=== PATIENT | male | born 1965 | race Hispanic/Latino ===

== ENCOUNTER 2017-09-25 11:52 | Inpatient (IN) | payer SELFPAY ==
--- NOTE | 2017-09-25 13:26 | ULT ---
GALLBLADDER ULTRASOUND: INDICATION: Vomiting. FINDINGS: Abnormal increased echogenicity of the hepatic parenchyma is present. There is evidence of cholelith iasis. Gallbladder wall is thickened 5 mm. Small's sign is reported as negative. The common duct measures 7 mm. No ascites evident. IMPRESSION: 1. Cholelithiasis. There is gallbladder wall thickening. Recommend clinical correlation for eviden ce of cholecystitis. 2. Common duct is slightly dilated at 7 mm. Recommend correlation with biliary laboratory values to exclude an obstructive process. POS: [facility]
[2017-09-25] MEDS ORDERED: Ondansetron HCl/PF 4 MG/2 ML Vial ONE ×2 (14:04→15:40)
[2017-09-25] MEDS ORDERED: Piperacillin/Tazobactam 4.5 GM VIAL ONE (15:21)
[2017-09-25] MEDS ORDERED: Glycopyrrolate 0.2 MG/ML 5 ML SYRINGE ONE (15:40)
[2017-09-25] MEDS ORDERED: ePHEDrine/0.9% NaCl/PF SYRINGE 50 mg/10 ml ONE (15:40)
[2017-09-25] MEDS ORDERED: Dexamethasone 20 MG/5 ML VIAL ONE (15:40)
[2017-09-25] MEDS ORDERED: PHENYLEPHRINE-NS 100 MCG/ML 10 ML SYRINGE ONE (15:40)
[2017-09-25] MEDS ORDERED: Ketorolac Tromethamine 30 MG/ML VIAL ONE (15:40)
[2017-09-25] MEDS ORDERED: Lidocaine 1% PF 5 ML VIAL ONE (15:40)
[2017-09-25] MEDS ORDERED: PROPOFOL 200 MG/20 ML VIAL ONE (15:40)
[2017-09-25] MEDS ORDERED: Morphine 4 MG/ML VIAL ONE (19:19)
[2017-09-25] MEDS ORDERED: Bupivacaine/Epinephrine 0.25% 30 ML VIAL ONE (20:52)
--- NOTE | 2017-09-25 22:40 | HP ---
DATE OF ADMISSION: 09/25/2017 REQUESTING PHYSICIAN: Tammi Mac D.O. ATTENDING SURGEON: Casimiro Alonso D.O. HISTORY OF PRESENT ILLNESS: The patient is a 52-year-old man who reports this morning that he was aw akened with a sharp right upper quadrant pain. The patient tried to take some home remedies and read just himself, but was unable to make the pain go away, so he took himself to the Emergency Department at [place] where he underwent evaluation and examination and was noted to have continued right uppe r quadrant pain with an essentially unremarkable CT scan. The patient was then transferred to our fa cility for a right upper quadrant ultrasound which showed findings consistent with acute cholecystiti s at which time we were asked to evaluate the patient for admission and surgical intervention. ALLERGIES: None. CURRENT MEDICATIONS: None. PAST MEDICAL HISTORY: History of diverticulosis. PAST SURGICAL HISTORY: Appendectomy. FAMILY MEDICAL HISTORY: Hypertension. 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 The patient drin ks approximately one beer a day. Also, uses marijuana on a daily basis. Denies smoking. REVIEW OF SYSTEMS: Ten-point review of systems is negative as otherwise stated. PHYSICAL EXAMINATION: VITAL SIGNS: Blood pressure 131/82, heart rate 62, respirations 16, oxygen saturation 99% on room ai r, and temperature is 98.9. GENERAL: The patient is resting comfortably in bed. He is awake, alert, and oriented x3. HEENT: Head is normocephalic. Eyes: Extraocular motion intact. PERRLA bilaterally. Ears are atra umatic without discharge. Oropharynx is clear. NECK: Nontender. Trachea is midline. No JVD. LUNGS: Clear to auscultation with good inspiratory and expiratory effort. HEART: Regular rate and rhythm. ABDOMEN: Soft, flat, nontender with active bowel sounds. The patient had a negative Small sign for me. EXTREMITIES: Neurovascularly intact x4. BACK: Atraumatic and nontender with negative CVA tenderness. SKIN: Shows no signs of jaundice. Sclerae are clear. LABORATORY FINDINGS: White blood cell count 8.6, hemoglobin 16.7, hematocrit 48.4, platelets 244. S odium 141, potassium 4.5, chloride 109, CO2 of 23, BUN 12, creatinine 0.76, glucose 114. LFTs are un remarkable. Lipase is 39. Urinalysis is unremarkable. RADIOGRAPHIC REPORTS: Right upper quadrant ultrasound shows cholelithiasis with gallbladder wall thi ckening. Common bile duct is slightly dilated at 7 mm. ASSESSMENT: Acute cholecystitis. PLAN: Plan will be to admit the patient to the surgical floor. He will remain n.p.o. and will under go laparoscopic cholecystectomy this evening with anticipated discharge tomorrow morning as long as h is LFTs remain normal and he is tolerating a diet. The evaluation and examination were done with Dr. Alonso in the emergency department.
[2017-09-25] MEDS ORDERED: CEFAZOLIN/Water 2 GM/20 ML SYRINGE ONE ×2 (22:46→23:21)
[2017-09-25] MEDS ORDERED: CEFAZOLIN 1 GM VIAL ONE (22:46)
[2017-09-25] MEDS ORDERED: Fentanyl 100 MCG/2 ML VIAL ONE (23:00)
[2017-09-26] MEDS ORDERED: Ondansetron HCl/PF 4 MG/2 ML Vial IVP PRN ×3 (00:52→01:34)
[2017-09-26] MEDS ORDERED: Promethazine HCl 25 MG/ML VIAL IM PRN ×3 (00:52→01:34)
[2017-09-26] MEDS ORDERED: Ketorolac Tromethamine 30 MG/ML VIAL IVP PRN (00:52)
[2017-09-26] MEDS ORDERED: Dextrose 50% Abboject 50 ML SYRINGE SLOW IVP PRN ×2 (00:52→01:34)
[2017-09-26] MEDS ORDERED: hydrALAZINE 20 MG/ML VIAL SLOW IVP PRN ×2 (00:52→01:34)
[2017-09-26] MEDS ORDERED: Dextrose 5% in Water 1,000 ML IV PRN ×2 (00:52→01:34)
[2017-09-26] MEDS ORDERED: Calcium Carbonate 500 MG ChewTAB PO PRN ×2 (00:52→01:34)
[2017-09-26] MEDS ORDERED: Mag-Al 1200 mg/1200 mg/30 ML UDCUP PO PRN ×2 (00:52→01:34)
[2017-09-26] MEDS ORDERED: Promethazine HCl 25 MG/ML VIAL SLOW IVP PRN (00:54)
[2017-09-26] MEDS ORDERED: traMADol HCl 50 MG TAB PO PRN ×4 (00:55→01:34)
[2017-09-26] MEDS ORDERED: Fentanyl 100 MCG/2 ML VIAL ONE ×2 (00:58→01:11)
[2017-09-26] MEDS ORDERED: Famotidine/PF 20 mg/2ml Vial SLOW IVP SCH ×2 (01:34→09:00)
[2017-09-26] MEDS ORDERED: Lactated Ringer's 1,000 ML IV SCH (01:34)
[2017-09-26] MEDS ORDERED: Famotidine 20 MG TAB PO SCH ×2 (01:34→09:00)
[2017-09-26] MEDS: Lactated Ringer's 1,000 ML IV SCH ×3 (01:35→16:14)
[2017-09-26 02:04] VITALS: BMI 34.7
[2017-09-26] MEDS: Acetaminophen 500 MG TAB PO SCH ×3 (02:14→16:13)
[2017-09-26] MEDS: Ketorolac Tromethamine 30 MG/ML VIAL IVP SCH ×3 (02:14→16:13)
[2017-09-26] MEDS: Piperacillin/Tazobactam 3.375 GM in Sodium Chloride 0.9% 100 ML IVPB SCH ×3 (03:21→16:13)
[2017-09-26] MEDS ORDERED: Acetaminophen 325 MG TAB PO SCH (05:00)
[2017-09-26 06:06] LABS: ALT (SGPT) 39 U/L (8-55); AST (SGOT) 35 U/L (5-34); Albumin 3.9 g/dL (3.5-5.0); Alkaline Phosphatase 69 U/L (40-150); Anion Gap 11 mmol/L (10-20); BUN (Urea Nitrogen) 10 mg/dL (8.4-25.7); Bilirubin, Direct 0.2 mg/dL (0.1-0.3); Bilirubin, Total 0.5 mg/dL (0.2-1.2); Calc. Creatinine Clearance 172 mL/min (70-130); Calcium 8.7 mg/dL (7.8-10.44); Carbon Dioxide 25 mmol/L (22-29); Chloride 106 mmol/L (98-107); Estimated GFR-MDRD Greater than 90; Globulin 2.9 g/dL (2.4-3.5); Glucose 151 mg/dL (70-105); Potassium 4.2 mmol/L (3.5-5.1); Protein, Total 6.8 g/dL (6.0-8.3); Sodium 138 mmol/L (136-145)
--- NOTE | 2017-09-26 06:22 | OP ---
DATE OF PROCEDURE: 09/26/2017 PREOPERATIVE DIAGNOSIS: Acute cholecystitis with cholelithiasis. POSTOPERATIVE DIAGNOSIS: Acute cholecystitis with cholelithiasis. OPERATION PERFORMED: Laparoscopic cholecystectomy. SURGEON: Casimiro Alonso D.O. ANESTHESIA: General endotracheal. ESTIMATED BLOOD LOSS: 10 mL. FLUIDS GIVEN: 1000 mL crystalloids. SPONGE AND INSTRUMENT COUNT: Certified as correct x2. COMPLICATIONS: None apparent at the time of operation. INDICATIONS FOR OPERATION: A 52-year-old man who presented to the emergency department with right up per quadrant abdominal pain. Clinical and radiographic examination was consistent with acute cholecystitis with cholelithiasis for which patient was brought to the operating room for laparoscopic cholecystectomy. Findings are consistent with gallbladder in the usual anatomic location completely encased by omental adhesions. DESCRIPTION OF OPERATION: Informed consent obtained from the patient who was brought to the operatin g room and placed in supine position. Following general anesthesia, the abdomen is sterilely prepped and draped in usual fashion. The skin below the umbilicus was infiltrated with 0.25% Marcaine with epinephrine. A small curvilinear infraumbilical incision is made using 11 scalpel. Umbilical stalk grasped with Homer's and elevated. Veress needle inserted through the incision and placed in the pe ritoneal cavity through which the abdomen was insufflated with 3.5 liters of CO2 gas. Intraabdominal pressure noted at 3 mmHg. Following abdominal insufflation, Veress needle was removed and a 5 mm tr ocar introduced using the Visiport under laparoscopy. Laparoscopy confirmed proper placement of the port, no injuries to underlying structures. Additional laparoscopy reveals gallbladder in the usual anatomic location completely encased by omental adhesions. Under direct laparoscopy, a 12 mm epigast mark and two 5 mm right lateral subcostal ports were placed after the overlying skin was infiltrated w ith 0.25% Marcaine with epinephrine and appropriate incisions made. The patient is then placed in a reverse Trendelenburg position, rotated to his left. I introduced the [place] dissector with cauter y, using this to take down omental adhesions to expose the fundus of the gallbladder. Prestige grasp er introduced through the right lateral subcostal port grasping the fundus of the gallbladder which w as elevated cephalad. Omental adhesions were then taken down from the remainder of the gallbladder. A second Prestige grasper introduced through the right medial subcostal port grasping the Megan's pouch which was retracted laterally. The cystic duct was dissected free from the surrounding struct ures at the triangle of Calot. This was then divided between clips, applying two clips proximally an d one clip at the junction of the cystic duct and gallbladder. Cystic artery was dissected free from surrounding structures and divided between clips in a similar fashion. Gallbladder was removed from the liver bed using cautery with good hemostasis. It was then delivered of the abdominal cavity usi ng an EndoCatch. Finding no other pathology, laparoscopy was terminated. Operative site inspected f or good hemostasis. Fascia of the epigastric port closed using 0 Vicryl suture and Endo closure deric ce under laparoscopy. Abdomen was then desufflated. All ports and instruments removed and accounted for. Skin incisions were then closed using 4-0 Monocryl suture in subcuticular fashion. Dermabond was applied over the incisions. The patient tolerated the operation without any apparent complicatio n and was returned to recovery room in satisfactory condition.
[2017-09-26] MEDS ORDERED: Enoxaparin Sodium 40 MG/0.4 ML SYRINGE SC SCH ×2 (09:00)
[2017-09-26 15:41] VITALS: BP 119/79; TEMP 98.2
== END 2017-09-26 17:30 | disposition home or self-care (01) | DRG 419 ==
LOC: ERS 11:52 → SDC 16:35 → SURG B 16:35 → OBSVTOIN 09-26 00:52
PROVIDERS: ADMIT Surgery; ATTEND Surgery
PROC: 0FT44ZZ Resection of Gallbladder, Percutaneous Endoscopic Approach (ICD-10-PCS; principal; 2017-09-26)
DX: K80.00 Calculus of gallbladder with acute cholecystitis without obstruction (principal)
CPT/HCPCS: 36415; 76705; 80053; 80076; 88304; 96361; 96365; 96375; J0690; J1100; J1885; J2001; J2270; J2405; J2543; J2704; J3010; J7050

== ENCOUNTER 2017-10-01 23:27 | Emergency (ER) | payer SELFPAY ==
[2017-10-02] MEDS ORDERED: Fentanyl 100 MCG/2 ML VIAL ONE ×2 (01:25→03:43)
[2017-10-02] MEDS ORDERED: Ketorolac Tromethamine 30 MG/ML VIAL ONE (01:25)
[2017-10-02 01:39] LABS: ALT (SGPT) 35 U/L (8-55); AST (SGOT) 17 U/L (5-34); Albumin 4.4 g/dL (3.5-5.0); Alkaline Phosphatase 77 U/L (40-150); Anion Gap 14 mmol/L (10-20); BUN (Urea Nitrogen) 17 mg/dL (8.4-25.7); Bilirubin, Total 0.5 mg/dL (0.2-1.2); Calc. Creatinine Clearance 0 mL/min (70-130); Calcium 9.8 mg/dL (7.8-10.44); Carbon Dioxide 20 mmol/L (22-29); Chloride 108 mmol/L (98-107); Estimated GFR-MDRD Greater than 90; Globulin 3.7 g/dL (2.4-3.5); Glucose 113 mg/dL (70-105); Lipase 16 U/L (8-78); Magnesium 2.5 mg/dL (1.6-2.6); Potassium 4.2 mmol/L (3.5-5.1); Protein, Total 8.1 g/dL (6.0-8.3); Sodium 138 mmol/L (136-145)
[2017-10-02 01:42] LABS: CKMB 0.5 ng/mL (0-6.6); Troponin I Less than 0.010 ng/mL (< 0.028)
[2017-10-02 03:56] LABS: #Basophils 0.1 thou/uL (0.0-0.2); #Eosinphils 0.1 thou/uL (0.0-0.7); #Lymphocytes 1.9 thou/uL (1.20-3.40); #Monocytes 0.9 thou/uL (0.11-0.59); #Neutrophils 6.3 thou/uL (1.40-6.50); %Basophils 0.6 % (0.0-1.0); %Eosinophils 1.3 % (0.0-10.0); %Lymphocytes 20.6 % (21.0-51.0); %Monocytes 10.1 % (0.0-10.0); %Neutrophils 67.4 % (42.0-75.0); Hemoglobin 18.1 g/dL (14.0-18.0); Mean Corpuscular HGB CONC 33.1 g/dL (32.0-36.0); Mean Corpuscular Hemoglobin 29.7 pg (27.0-31.0); Mean Corpuscular Volume 89.5 fL (78.0-98.0); Mean Platelet Volume 7.9 fL (7.4-10.4); Platelet Count 279 thou/uL (130-400); RBC Distribution Width 12.9 % (11.5-14.5); White Blood Cell (WBC) Count 9.3 thou/uL (4.8-10.8)
[2017-10-02 04:02] LABS: Bilirubin Negative (Negative); Blood, Urine Negative (Negative); Clarity CLEAR (Clear); Glucose, Urine (Dipstick) Negative (Negative); Leukocyte Negative (Negative); Nitrite Negative (Negative); Protein, Urine (Dipstick) Negative (Neg-Trace); pH, Urine 5.5 (5.0-9.0)
[2017-10-02 04:05] LABS: Specific Gravity, Urine Greater than 1.060 (1.002-1.036)
--- NOTE | 2017-10-02 09:51 | CT ---
PRELIMINARY REPORT/[facility]/EMERGENTY AFTER-HOURS PROCEDURE CT Abdomen and Pelvis With Intravenous Contrast CLINICAL HISTORY: 52 years old, male; Abdominal pain; Prior surgery; date: 3-7 days post-operative; placido about a week ago - was released home on same day. Vomiting and constant pain worsening since yesterday. TECHNIQUE: Axial computed tomography images of the abdomen and pelvis with intravenous contrast. Coronal reformatted images were created and reviewed. COMPARISON: No relevant prior studies available. FINDINGS: Lung bases: Unremarkable. No mass. No consolidation. ABDOMEN: Liver: Mild liver fatty infiltration. Gallbladder and bile ducts: Status post cholecystectomy. Trace residual fluid within the gallbladder fossa. No ductal dilation. Pancreas: Unremarkable. No mass. No ductal dilation. Spleen: Unremarkable. No splenomegaly. Adrenals: 13 mm low-density adenoma of the superior left adrenal gland. Normal right adrenal gland. Kidneys and ureters: No hydronephrosis. Small nonobstructing calcified stone upper pole left kidney c oronal image 103. Stomach and bowel: No generalized ileus or obstruction. Mural thickening of the mid sigmoid colon wit h associated scattered diverticula and infiltration / stranding of the pericolonic fat consistent wit h mild acute diverticulitis. No lauryn abscess or perforation. PELVIS: Appendix: Prior appendectomy. Bladder: Unremarkable. No mass. Reproductive: Unremarkable as visualized. ABDOMEN and PELVIS: Intraperitoneal space: Unremarkable. No free air. No significant fluid collection. Bones/joints: No acute fracture. No dislocation. Soft tissues: Small fat-containing umbilical hernia. Vasculature: Unremarkable. No abdominal aortic aneurysm. Lymph nodes: Unremarkable. No enlarged lymph nodes. IMPRESSION: 1. No generalized ileus or obstruction. 2. Mild acute diverticulitis of the mid sigmoid colon. No associated abscess or perforation. 3. Status post cholecystectomy. Trace residual fluid within the gallbladder fossa. 4. No hydronephrosis. Small nonobstructing calcified stone upper pole left kidney coronal image 103. Thank you for allowing us to participate in the care of your patient. Dictated and Authenticated by: Gordon Sanchez MD 10/02/2017 2:46 AM Central Time ([place] & [place]) FINAL REPORT EMERGENT AFTER HOURS CT ABDOMEN AND PELVIS WITH IV CONTRAST: DATE: 10/02/17. HISTORY: Abdominal pain. Recent cholecystectomy 1 week ago. Vomiting and constant pain which has gotten wors e. COMPARISON: 09/25/17. IMPRESSION: 1. Diverticulits involving the sigmoid colon. No fluid collection is seen to suggest an abscess, and there is no free intraperitoneal gas to suggest perforation. 2. Post cholecystectomy changes. Minimal stranding and trace amount of fluid is seen related to the recent postsurgical changes. There is a focus of subcutaneous gas and mild stranding in the subcuta neous adipose layer right upper quadrant also likely related to recent postsurgical change. 2. Stable nonobstructing left renal calculi. 4. Stable left adrenal adenoma. 5. Findings are in agreement with the preliminary report by [facility]. POS: [facility]
--- NOTE | 2017-10-02 10:16 | RAD ---
PORTABLE AP CHEST XRAY: DATE: 10/02/17. HISTORY: Intense chest pain worse today. COMPARISON: 09/11/11. FINDINGS: Cardiac silhouette and pulmonary vasculature are within normal limits for the portable technique and depth of inspiration. There is mild bibasilar atelectasis with mild elevation of the right hemidiaph ragm. Lungs are otherwise clear. Degenerative changes are noted in the spine. IMPRESSION: 1. No acute cardiopulmonary process. 2. Bibasilar atelectasis. POS: [facility]
[2017-10-02] MEDS ORDERED: ISOVUE-370 76%-LOCM 1 ML ONE (11:46)
== END 2017-10-02 04:30 | disposition home or self-care (01) ==
LOC: ERS 23:27
DX: G89.18 Other acute postprocedural pain (principal); K57.92 Diverticulitis of intestine, part unspecified, without perforation or abscess without bleeding
CPT/HCPCS: 36415; 71045; 74177; 80053; 81003; 82553; 83690; 83735; 84484; 85025; 96361; 96374; 96375; 96376; J1885; J3010

== ENCOUNTER 2017-10-24 16:37 | Inpatient (IN) | payer OTHER, SELFPAY ==
[~2017-10-24 16:37] MED LIST: ISOVUE-370 76%-LOCM 1 ML ONE
[2017-10-24] MEDS ORDERED: Piperacillin/Tazobactam 4.5 GM VIAL ONE (17:22)
[2017-10-24 17:31] LABS: #Basophils 0.1 thou/uL (0.0-0.2); #Eosinphils 0.2 thou/uL (0.0-0.7); #Lymphocytes 2.1 thou/uL (1.20-3.40); #Monocytes 0.8 thou/uL (0.11-0.59); #Neutrophils 6.7 thou/uL (1.40-6.50); %Basophils 0.5 % (0.0-1.0); %Lymphocytes 21.1 % (21.0-51.0); %Monocytes 8.3 % (0.0-10.0); %Neutrophils 68.1 % (42.0-75.0); Hemoglobin 16.4 g/dL (14.0-18.0); Mean Corpuscular HGB CONC 33.7 g/dL (32.0-36.0); Mean Corpuscular Hemoglobin 30.1 pg (27.0-31.0); Mean Corpuscular Volume 89.1 fL (78.0-98.0); Mean Platelet Volume 7.7 fL (7.4-10.4); Platelet Count 244 thou/uL (130-400); RBC Distribution Width 12.8 % (11.5-14.5); Red Blood Cell (RBC) Count 5.46 mill/uL (4.70-6.10); White Blood Cell (WBC) Count 9.8 thou/uL (4.8-10.8)
[2017-10-24 17:41] LABS: Bilirubin Negative (Negative); Blood, Urine Negative (Negative); Clarity CLEAR (Clear); Glucose, Urine (Dipstick) Negative (Negative); Leukocyte Negative (Negative); Nitrite Negative (Negative); Protein, Urine (Dipstick) Negative (Neg-Trace); Specific Gravity, Urine 1.024 (1.002-1.036); Urobilinogen 0.2 mg/dL (0.2-1.0)
[2017-10-24 17:50] LABS: ALT (SGPT) 24 U/L (8-55); AST (SGOT) 18 U/L (5-34); Albumin 4.1 g/dL (3.5-5.0); Alkaline Phosphatase 73 U/L (40-150); Anion Gap 12 mmol/L (10-20); BUN (Urea Nitrogen) 12 mg/dL (8.4-25.7); Bilirubin, Total 0.5 mg/dL (0.2-1.2); Calc. Creatinine Clearance 0 mL/min (70-130); Carbon Dioxide 21 mmol/L (22-29); Chloride 109 mmol/L (98-107); Estimated GFR-MDRD Greater than 90; Globulin 3.3 g/dL (2.4-3.5); Glucose 88 mg/dL (70-105); Lipase 19 U/L (8-78); Magnesium 2.6 mg/dL (1.6-2.6); Potassium 3.9 mmol/L (3.5-5.1); Protein, Total 7.4 g/dL (6.0-8.3); Sodium 138 mmol/L (136-145)
[2017-10-24] MEDS ORDERED: Ketorolac Tromethamine 30 MG/ML VIAL ONE (18:25)
--- NOTE | 2017-10-24 19:24 | CT ---
CT ABDOMEN AND PELVIS WITH CONTRAST: HISTORY: Diverticulitis. COMPARISON: CT abdomen and pelvis from 10/02/2017. FINDINGS: Mild atelectatic changes in the lung bases. No pericardial effusion. The sigmoid diverticulitis is similar to slightly improving. No walled off collection is appreciated. No definite abscess. 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 Left-sided renal calculi are present, measuring up to 3 mm. No obstructive uropathy. Aortoiliac con tour is nonaneurysmal. Prior cholecystectomy. Diffuse hepatic steatosis. Small splenules. The pancreas is unremarkable. IMPRESSION: Resolving sigmoid diverticulitis without acute complication. POS: [facility]
[2017-10-24] MEDS ORDERED: Acetaminophen 325 MG TAB PO PRN (20:41)
[2017-10-24] MEDS ORDERED: HYDROcodone/Acetaminophen 5/325 mg Tablet PO PRN (20:41)
[2017-10-24] MEDS ORDERED: Ondansetron ODT 4 MG TAB SL PRN (20:41)
[2017-10-24] MEDS: Sodium Chloride 0.45% 1,000 ML IV SCH (21:35)
[2017-10-24] MEDS: HYDROcodone/Acetaminophen 5/325 mg Tablet PO PRN (22:21)
[2017-10-24 22:54] VITALS: BMI 34.2
[2017-10-24] MEDS: Acetaminophen 500 MG TAB PO SCH (23:51)
[2017-10-24] MEDS: Piperacillin/Tazobactam 3.375 GM in Sodium Chloride 0.9% 100 ML IVPB SCH (23:51)
--- NOTE | 2017-10-25 03:31 | HP ---
TIME OF EVALUATION: 7:55 p.m. PRIMARY CARE PHYSICIAN: No PCP. CODE STATUS: FULL CODE. CHIEF COMPLAINT: Abdominal pain. HISTORY OF PRESENT ILLNESS: A 52-year-old male patient with past medical history of diverticulosis, morbid obesity, gallstones, came to the hospital after having severe pain in the left lower abdomen, the patient reported that he had the pain for about 3 weeks ago. Over the past 3 days, it has been g etting severely worse. He had been on antibiotics p.o. Also, patient's bile and gallstone improving , however, the pain has gotten worse. Symptoms are severe, triggered by diverticular infection. No alleviating factors other than pain medication, has had constipation, no blood in the stool. REVIEW OF SYSTEMS: Constitutional: No fever or chills. Generalized weakness. Respiratory: No cou gh, sputum production, or shortness of breath. Cardiovascular: No chest pain, palpitations, or shor tness of breath. Gastrointestinal: The patient has nausea and vomiting, no diarrhea, abdominal pain , and constipation. Central Nervous System: No dizziness, headache, or feeling lightheaded. Genito urinary: No burning on urination. Extremities: No leg swelling. All other systems were reviewed a nd negative except for the findings mentioned above. PAST MEDICAL HISTORY: Mentioned in the HPI. SOCIAL HISTORY: Patient drinks socially every week, use drugs, marijuana. No smoking history. PAST MEDICAL AND SURGICAL HISTORY: History of cholecystectomy in April of this year, appendectomy . PSYCHIATRIC HISTORY: No previous psychiatric history. FAMILY HISTORY: Father with heart problems. Mother with heart problems, hypertension, and diabetes. KNOWN ALLERGIES: No known drug allergies. REPORTED MEDICATIONS: Zyrtec, MiraLax. PHYSICAL EXAMINATION: VITAL SIGNS: Blood pressure 129/82 with heart rate of 87, respiratory rate was 20, temperature 97.5, pain was 10/10, saturation 96% on room air. GENERAL APPEARANCE: Patient is alert, in distress due to pain and oriented. HEENT: Eyes: Normal conjunctivae. Moist oral mucosa. Anicteric. NECK: No JVD. RESPIRATORY: Bilateral air entry. No rales, no wheezing. Symmetric expansion. CARDIOVASCULAR: Normal rate, regular rhythm. No murmurs, no gallop. EXTREMITIES: No edema. ABDOMEN: The patient has severe tenderness in the left lower quadrant, normal bowel sounds. MUSCULOSKELETAL: Baseline range of motion and strength. No tenderness. Capillary refill seems to b e intact. SKIN: Warm and intact. No pallor, no rash, no redness. Peripheral pulses are present. NEUROLOGIC: Baseline sensorium. No evidence of any focal weakness. Baseline speech. Cranial nerve seems to be intact. PSYCHIATRIC: The patient is in a good mood. No anxiety. Oriented. Optimal judgment. IMAGING: Abdominal pelvis CT was reviewed. The patient has resolving sigmoid diverticulitis without acute complications. LABORATORY DATA: Labs were done. Patient has white count 9.8, hemoglobin 16.4, MCV 89, platelet cou nt 244,000. Sodium 138, potassium 3.9, chloride 109, carbon dioxide was 21, anion gap 12, BUN 12, cr eatinine 0.7. LFTs were normal. Magnesium was normal. Lipase was normal and UA was normal. ASSESSMENT AND PLAN: The patient will be placed in the hospital for the following medical problem: 1. Possible remaining acute diverticulitis, place the patient on antibiotics. We will follow judy elaine. We will monitor. We will treat pain. 2. Severe intractable pain in the left lower quadrant, patient receiving medications for edema control, . We will adjust treatment as needed. 3. Deep venous thrombosis prophylaxis.
[2017-10-25] MEDS: HYDROcodone/Acetaminophen 5/325 mg Tablet PO PRN ×4 (04:40→23:46)
[2017-10-25 05:23] LABS: #Eosinphils 0.2 thou/uL (0.0-0.7); #Lymphocytes 0.9 thou/uL (1.20-3.40); #Monocytes 0.9 thou/uL (0.11-0.59); #Neutrophils 6.7 thou/uL (1.40-6.50); %Basophils 0.3 % (0.0-1.0); %Eosinophils 2.6 % (0.0-10.0); %Lymphocytes 10.1 % (21.0-51.0); %Monocytes 9.7 % (0.0-10.0); %Neutrophils 77.2 % (42.0-75.0); Hemoglobin 15.5 g/dL (14.0-18.0); Mean Corpuscular HGB CONC 34.2 g/dL (32.0-36.0); Mean Corpuscular Hemoglobin 30.6 pg (27.0-31.0); Mean Corpuscular Volume 89.5 fL (78.0-98.0); Mean Platelet Volume 7.3 fL (7.4-10.4); Platelet Count 226 thou/uL (130-400); RBC Distribution Width 12.7 % (11.5-14.5); Red Blood Cell (RBC) Count 5.08 mill/uL (4.70-6.10); White Blood Cell (WBC) Count 8.7 thou/uL (4.8-10.8)
[2017-10-25 05:40] LABS: Anion Gap 11 mmol/L (10-20); BUN (Urea Nitrogen) 13 mg/dL (8.4-25.7); Calc. Creatinine Clearance 203 mL/min (70-130); Calcium 8.2 mg/dL (7.8-10.44); Carbon Dioxide 20 mmol/L (22-29); Chloride 110 mmol/L (98-107); Estimated GFR-MDRD Greater than 90; Glucose 109 mg/dL (70-105); Potassium 4.2 mmol/L (3.5-5.1); Sodium 137 mmol/L (136-145)
[2017-10-25] MEDS: Acetaminophen 500 MG TAB PO SCH ×4 (05:42→23:45)
[2017-10-25] MEDS: Piperacillin/Tazobactam 3.375 GM in Sodium Chloride 0.9% 100 ML IVPB SCH ×4 (05:42→23:45)
[2017-10-25] MEDS: Ondansetron HCl/PF 4 MG/2 ML Vial IVP PRN ×2 (05:48→12:19)
[2017-10-25] MEDS: Sodium Chloride 0.45% 1,000 ML IV SCH ×3 (05:57→21:33)
[2017-10-25] MEDS: Enoxaparin Sodium 40 MG/0.4 ML SYRINGE SC SCH (08:13)
[2017-10-25] MEDS ORDERED: Ketorolac Tromethamine 30 MG/ML VIAL IVP SCH (18:00)
--- NOTE | 2017-10-25 19:01 | RAD ---
ABDOMEN ONE VIEW: 10/25/17 HISTORY: Severe abdominal pain. Evaluate for free air. COMPARISON: CT prior day. FINDINGS: Evaluation for free air is limited without an upright view. Supine radiographs are inadequate for lorraine e intraperitoneal air. No dilated air filled loops of large or small bowel. No evidence for obstruction. Right upper quadran t surgical clips. Lumbosacral transitional vertebra with large left L5 transverse process an anomalo us articulation with the sacrum. IMPRESSION: Evaluation is limited without an upright exam. No evidence for bowel obstruction. POS: [facility]
[2017-10-25] MEDS ORDERED: Morphine 4 MG/ML VIAL SLOW IVP SCH (21:00)
[2017-10-26] MEDS: Sodium Chloride 0.45% 1,000 ML IV SCH (04:22)
[2017-10-26] MEDS: Acetaminophen 500 MG TAB PO SCH ×4 (05:37→23:37)
[2017-10-26] MEDS: Piperacillin/Tazobactam 3.375 GM in Sodium Chloride 0.9% 100 ML IVPB SCH ×4 (05:38→23:37)
[2017-10-26] MEDS: Ondansetron HCl/PF 4 MG/2 ML Vial IVP PRN (05:44)
[2017-10-26] MEDS: HYDROcodone/Acetaminophen 5/325 mg Tablet PO PRN (06:30)
[2017-10-26] MEDS: Enoxaparin Sodium 40 MG/0.4 ML SYRINGE SC SCH (09:12)
[2017-10-26] MEDS: Morphine 4 MG/ML VIAL SLOW IVP PRN ×2 (14:52→19:08)
--- NOTE | 2017-10-26 15:01 | PDOC.PN ---
- Subjective Encounter Start Date: 10/25/17 Encounter Start Time: 09:00 patient is seen today, alert and oriented. Persistanbt Abdominal pain left lower quadrant,. 9/10 intesity. - Objective Resuscitation Status: Resuscitation Status FULL:Full Resuscitation MAR Reviewed: Yes Vital Signs & Weight: Vital Signs (12 hours) Temp Pulse Resp BP Pulse Ox 10/26/17 11:37 98.4 F 79 20 117/79 96 10/26/17 08:00 98 F 58 L 18 10/26/17 07:31 98 F 58 L 18 98/60 97 10/26/17 04:23 97.8 F 55 L 20 102/65 98 Weight Weight 239 lb I&O: 10/25/17 10/26/17 10/27/17 06:59 06:59 06:59 Intake Total 1480 4195 Balance 1480 4195 Result Diagrams: 10/25/17 04:37 10/25/17 04:37 Radiology Reviewed by me: Yes Phys Exam - Physical Examination HEENT: PERRLA, moist MMs Neck: no nodes, no JVD Respiratory: no wheezing, no rales Cardiovascular: RRR, no significant murmur Gastrointestinal: soft, non-tender Musculoskeletal: no edema, pulses present Dx/Plan (1) Diverticulitis large intestine Code(s): K57.32 - DVTRCLI OF LG INT W/O PERFORATION OR ABSCESS W/O BLEEDING Status: Acute Comment: Continue IV abx, Will do Xray Abd now. Will continue with IV Fluids, will consult surgery any signs of perforation. (2) Moderate dehydration Code(s): E86.0 - DEHYDRATION Status: Acute Comment: IV fluids, good urine output. - Plan cont current plan of care, plan discussed w/ family, continue antibiotics, PT/OT , web content & social media manager, incentive spirometry, DVT proph w/lovenox * . Review of Systems - Review of Systems Eyes: negative: Pain, Vision Change, Conjunctivae Inflammation, Eyelid Inflammation, Redness, Other ENT: negative: Ear Pain, Ear Discharge, Nose Pain, Nose Discharge, Nose Congestion, Mouth Pain, Mouth Swelling, Throat Pain, Throat Swelling, Other Respiratory: negative: Cough, Dry, Shortness of Breath, Hemoptysis, SOB with Excertion, Pleuritic Pain, Sputum, Wheezing Cardiovascular: negative: chest pain, palpitations, orthopnea, paroxysmal nocturnal dyspnea, edema, light headedness, other Gastrointestinal: Abdominal Pain, Constipation. negative: Nausea, Vomiting, Melena, Hematochezia, Other - Medications/Allergies Allergies/Adverse Reactions: Allergies Allergy/AdvReac Type Severity Reaction Status Date / Time No Known Allergies Allergy Verified 10/24/17 22:50 Medications: Current Medications Acetaminophen (Tylenol) 1,000 mg PO 0500,1100,1700,2300 [facility] Last Admin: 10/26/17 11:57 Dose: 1,000 mg Enoxaparin Sodium (Lovenox) 40 mg SC 0900 [facility] Last Admin: 10/26/17 09:12 Dose: 40 mg Piperacillin Sod/Tazobactam (Sod 3.375 gm/ Sodium Chloride) 100 mls @ 200 mls/ hr IVPB Q6HR [facility] Stop: 10/29/17 08:00 Last Admin: 10/26/17 11:57 Dose: 100 mls Morphine Sulfate (Morphine) 4 mg SLOW IVP Q4H PRN PRN Reason: . Last Admin: 10/26/17 14:52 Dose: 4 mg
--- NOTE | 2017-10-26 15:08 | PDOC.PN ---
- Subjective Encounter Start Date: 10/26/17 Encounter Start Time: 15:00 Patient is seen today, alert and oriented. Persistasnt pain, passing gas, No perforation on Xray. more comfortable today, Still not tolerating diet. - Objective Resuscitation Status: Resuscitation Status FULL:Full Resuscitation MAR Reviewed: Yes Vital Signs & Weight: Vital Signs (12 hours) Temp Pulse Resp BP Pulse Ox 10/26/17 11:37 98.4 F 79 20 117/79 96 10/26/17 08:00 98 F 58 L 18 10/26/17 07:31 98 F 58 L 18 98/60 97 10/26/17 04:23 97.8 F 55 L 20 102/65 98 Weight Weight 239 lb I&O: 10/25/17 10/26/17 10/27/17 06:59 06:59 06:59 Intake Total 1480 4195 Balance 1480 4195 Result Diagrams: 10/25/17 04:37 10/25/17 04:37 Radiology Reviewed by me: Yes Phys Exam - Physical Examination HEENT: PERRLA, moist MMs Neck: no nodes, no JVD Respiratory: no wheezing, no rales Cardiovascular: RRR, no significant murmur Tenderness of left lower quadrant. Musculoskeletal: no edema Dx/Plan (1) Diverticulitis large intestine Code(s): K57.32 - DVTRCLI OF LG INT W/O PERFORATION OR ABSCESS W/O BLEEDING Status: Acute Comment: Continue IV abx, Pt is On Zosyn, Normal WBC, will repeat CT abdomen tomorrow if worseingh pain and no improveemnt. Plan repeat cbc and lactic acid. (2) Moderate dehydration Code(s): E86.0 - DEHYDRATION Status: Acute Comment: IV fluids, good urine output. - Plan cont current plan of care, plan discussed w/ family, continue antibiotics, PT/OT , social services manager, incentive spirometry, DVT proph w/lovenox * . Review of Systems - Review of Systems Eyes: negative: Pain, Vision Change, Conjunctivae Inflammation, Eyelid Inflammation, Redness, Other ENT: negative: Ear Pain, Ear Discharge, Nose Pain, Nose Discharge, Nose Congestion, Mouth Pain, Mouth Swelling, Throat Pain, Throat Swelling, Other Respiratory: negative: Cough, Dry, Shortness of Breath, Hemoptysis, SOB with Excertion, Pleuritic Pain, Sputum, Wheezing Cardiovascular: negative: chest pain, palpitations, orthopnea, paroxysmal nocturnal dyspnea, edema, light headedness, other Gastrointestinal: Abdominal Pain, Constipation Genitourinary: negative: Dysuria, Frequency, Incontinence, Hematuria, Retention , Other Musculoskeletal: negative: Neck Pain, Shoulder Pain, Arm Pain, Back Pain, Hand Pain, Leg Pain, Foot Pain, Other Skin: negative: Rash, Lesions, Tristin, Bruising, Other - Medications/Allergies Allergies/Adverse Reactions: Allergies Allergy/AdvReac Type Severity Reaction Status Date / Time No Known Allergies Allergy Verified 10/24/17 22:50 Medications: Current Medications Acetaminophen (Tylenol) 1,000 mg PO 0500,1100,1700,2300 [facility] Last Admin: 10/26/17 11:57 Dose: 1,000 mg Enoxaparin Sodium (Lovenox) 40 mg SC 0900 [facility] Last Admin: 10/26/17 09:12 Dose: 40 mg Piperacillin Sod/Tazobactam (Sod 3.375 gm/ Sodium Chloride) 100 mls @ 200 mls/ hr IVPB Q6HR [facility] Stop: 10/29/17 08:00 Last Admin: 10/26/17 11:57 Dose: 100 mls Morphine Sulfate (Morphine) 4 mg SLOW IVP Q4H PRN PRN Reason: . Last Admin: 10/26/17 14:52 Dose: 4 mg
[2017-10-26] MEDS ORDERED: Ondansetron ODT 4 MG TAB SL PRN (19:52)
[2017-10-26] MEDS ORDERED: Ondansetron HCl/PF 4 MG/2 ML Vial IVP PRN (19:52)
[2017-10-26] MEDS ORDERED: Sodium Chloride 0.45% 1,000 ML IV SCH (20:00)
[2017-10-26] MEDS ORDERED: Sodium Chloride 0.9% 1,000 ML IV SCH (20:00)
[2017-10-26] MEDS: Sodium Chloride 0.9% 1,000 ML IV SCH (22:42)
[2017-10-27] MEDS: Morphine 4 MG/ML VIAL SLOW IVP PRN ×3 (03:32→21:56)
[2017-10-27] MEDS: Sodium Chloride 0.9% 1,000 ML IV SCH ×3 (03:32→20:46)
[2017-10-27 05:27] LABS: #Eosinphils 0.2 thou/uL (0.0-0.7); #Lymphocytes 1.3 thou/uL (1.20-3.40); #Monocytes 0.7 thou/uL (0.11-0.59); %Basophils 0.4 % (0.0-1.0); %Eosinophils 3.1 % (0.0-10.0); %Lymphocytes 18.1 % (21.0-51.0); %Monocytes 9.9 % (0.0-10.0); %Neutrophils 68.6 % (42.0-75.0); Hemoglobin 15.4 g/dL (14.0-18.0); Mean Corpuscular Hemoglobin 29.7 pg (27.0-31.0); Mean Platelet Volume 7.5 fL (7.4-10.4); Platelet Count 219 thou/uL (130-400); RBC Distribution Width 12.7 % (11.5-14.5); Red Blood Cell (RBC) Count 5.18 mill/uL (4.70-6.10); White Blood Cell (WBC) Count 7.3 thou/uL (4.8-10.8)
[2017-10-27 05:34] LABS: Anion Gap 12 mmol/L (10-20); BUN (Urea Nitrogen) 10 mg/dL (8.4-25.7); Calc. Creatinine Clearance 174 mL/min (70-130); Calcium 8.6 mg/dL (7.8-10.44); Carbon Dioxide 22 mmol/L (22-29); Chloride 107 mmol/L (98-107); Estimated GFR-MDRD Greater than 90; Glucose 90 mg/dL (70-105); Potassium 4.4 mmol/L (3.5-5.1); Sodium 137 mmol/L (136-145)
[2017-10-27] MEDS: Piperacillin/Tazobactam 3.375 GM in Sodium Chloride 0.9% 100 ML IVPB SCH ×4 (05:49→23:38)
[2017-10-27] MEDS: Acetaminophen 500 MG TAB PO SCH ×4 (05:51→23:39)
[2017-10-27] MEDS: Enoxaparin Sodium 40 MG/0.4 ML SYRINGE SC SCH (09:44)
--- NOTE | 2017-10-27 16:13 | PDOC.PN ---
- Subjective Encounter Start Date: 10/27/17 Encounter Start Time: 16:11 Mr. Garsia was seen today in follow-up of acute diverticulitis. He says the pain has improved, but it is still present. He has had a bowel movement. He is frustrated however that this is the 5th episode in the past 2 years. He wants to know " what is going on". He is un-insured and does not have a Primary Care Provider. He is afraid he may have cancer. - Objective Resuscitation Status: Resuscitation Status FULL:Full Resuscitation MAR Reviewed: Yes Vital Signs & Weight: Vital Signs (12 hours) Temp Pulse Resp BP Pulse Ox 10/27/17 12:00 98.3 F 73 16 128/84 96 10/27/17 07:34 98.1 F 63 16 10/27/17 07:30 97.8 F 69 12 136/89 97 Weight Weight 239 lb I&O: 10/26/17 10/27/17 10/28/17 06:59 06:59 06:59 Intake Total 4195 4205 Balance 4195 4205 Result Diagrams: 10/27/17 04:35 10/27/17 04:35 Phys Exam - Physical Examination HEENT: PERRLA Respiratory: no wheezing, no rales, no rhonchi, clear to auscultation bilateral Cardiovascular: RRR, no significant murmur, no rub Gastrointestinal: soft, no distention, positive bowel sounds + mid abdominal, and Left lower quandrant tenderness , no rebound/guarding Musculoskeletal: no edema Dx/Plan (1) Diverticulitis large intestine Code(s): K57.32 - DVTRCLI OF LG INT W/O PERFORATION OR ABSCESS W/O BLEEDING Status: Acute Comment: Continue IV abx, Pt is On Zosyn, Normal WBC, will repeat CT abdomen tomorrow if worseingh pain and no improveemnt. Plan repeat cbc and lactic acid. - Plan * Diverticulitis- recurrent- This was discussed in detail. He does not have any worrisome features. He is clinically improving. But due to the recurrent nature of the illness, and this possibility of a colonic colon fistula- will consult GI * Continue IV Zosyn.
--- NOTE | 2017-10-28 04:54 | CON ---
DATE OF CONSULTATION: 10/27/2017 REASON FOR CONSULTATION: Diverticulitis. HISTORY OF PRESENT ILLNESS: Mr. Garsia is a pleasant 52-year-old gentleman who was admitted for diver ticulitis. He came to the emergency room on the , three days ago with left lower quadrant abdomi nal pain, which is very similar to his previous bouts, which have been diagnosed as diverticulitis. This would, however, was much worse. Typically states he goes to the hospital in [facility] and now he has had a couple of CAT scans and then he will get some antibiotics to get get better, but within a few months will have to come back yesterday. He has had diverticulitis x6 times in the past 2 years, probably 3 times this year. At this time because the pain was worse, he decided to com e to the emergency room here at [facility] in [place] instead of [place]. He had a CAT scan that owed diverticulitis. 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 There w as no signs of overt infection due to the amount of pain the patient was having. Decision was made t o go ahead and admitted him to the hospital. His white count was only 9.8. His hemoglobin is 16. H is platelet count was 248. Patient's abdominal CAT scans in 06/2015 showed fatty liver, diverticulosis. In 02/2016, he had sigm oid diverticulitis on the CAT scan. In 09/2015, he had sigmoid diverticulitis. In 08/2017, he was d iagnosed with sigmoid diverticulitis by CAT scan. On 09/25/2017, he felt to have diverticulosis with out diverticulitis. There was an area of segmental thickening and the suggestion of a colonic-coloni c fistula on that study. The patient was sent here to this hospital and there was some concern raise d whether or not may be the patient had some right upper quadrant pain. He had an ultrasound that owed gallbladder wall thickening, cholelithiasis, and decision at that time was made to take his gall bladder out, which was done by Dr. Alonso. Patient did represent to the hospital on 10/02/2017 with n ausea, vomiting. He had mild sigmoid diverticulitis then. Reviewing the pathology, his gallbladder pathology on 09/26/2017 showed chronic cholecystitis and cho lelithiasis. The surgical note at that time on 09/26/2017, reported the gallbladder was encased by o mental adhesions and seemed to show signs of acute cholecystitis. Presently, the patient feels much better when he came to the hospital. PAST MEDICAL HISTORY: 1. Recurrent bouts of left lower quadrant pain and fever, diagnosis of diverticulitis by CAT scan, t reated empirically typically in [place]. 2. Recent episode of cholecystectomy for a thickened gallbladder wall, gallstones, and right upper q uadrant pain. 3. Prior history of substance abuse, heavy drug use. Recent marijuana. He denies IV drug use. SOCIAL HISTORY: He does drink alcohol, does not smoke, regular tobacco. ALLERGIES: None known. CURRENT MEDICATIONS AT HOME: None except for MiraLax, which he will take p.r.n. and vvmz-cml-qnuuoip Zyrtec. FAMILY HISTORY: Heart problems. There were some cancers in the mother's side of family. He thinks of blood cancers. There was no history of colon cancer, Crohn's, or colitis. ALLERGIES: None known. REVIEW OF SYSTEMS: He has lost about 10 or 15 pounds with this illness since the gallbladder was rem bruce in this procedure. PHYSICAL EXAMINATION: GENERAL: Patient is resting comfortably in bed. VITAL SIGNS: Temperature is 98.1. He has been afebrile since admission, pulse 61, blood pressure 11 7/71. LUNGS: Clear. HEART: Regular rate and rhythm. ABDOMEN: Soft. There is mild tenderness with some voluntary guarding in the left lower quadrant sup rapubic region. There is no rebound. There is no distention. There is no tympany. Epigastric was negative. EXTREMITIES: No clubbing, cyanosis, or edema. LABORATORY AND X-RAY FINDINGS: White count 7.3 today, hemoglobin 15.4, platelet count 219 today. ASSESSMENT: Recurrent diverticulitis with possible colo-fistula still was significantly tender on IV antibiotics. RECOMMENDATIONS: Surgical consultation, secondary complicated diverticulitis. I think this patient also is going to need a sigmoid resection. It would be ideal if he can get him calmed down with IV a ntibiotics and have an outpatient colonoscopy, but I am not sure it seems he has ever stayed healthy without acute inflammation long enough. 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 Presently, he is not a good candidate for a colonoscopy in light of the active acute inflammation. He will be at increased risk for perforation. We will as k General Surgery to evaluate him tomorrow. We will continue IV antibiotics. He can have a clear li quid diet.
[2017-10-28] MEDS: Piperacillin/Tazobactam 3.375 GM in Sodium Chloride 0.9% 100 ML IVPB SCH ×2 (05:48→11:07)
[2017-10-28] MEDS: Acetaminophen 500 MG TAB PO SCH ×3 (05:49→18:02)
[2017-10-28] MEDS: Enoxaparin Sodium 40 MG/0.4 ML SYRINGE SC SCH (08:59)
[2017-10-28] MEDS: Sodium Chloride 0.9% 1,000 ML IV SCH ×2 (09:00→11:07)
--- NOTE | 2017-10-28 15:06 | CON ---
DATE OF CONSULTATION: 10/28/2017 CHIEF COMPLAINT: Diverticulitis, recurrent. HISTORY OF PRESENT ILLNESS: This is a 52-year-old male who presents with multiple episodes of divert iculitis. I have been consulted for potential surgical management. He has had multiple bouts of thi s and has had multiple courses of antibiotics. He has almost daily pain. His symptoms have improved at this hospitalization. I have been consulted for whether this represents a surgical need. Patien t's pain is now down to 3/10 only when he pushes. He is tolerating regular food, although he does no t like the hospital food, has not been eating much. Denies nausea, vomiting, diarrhea. PAST MEDICAL HISTORY: Recurrent diverticulitis, cholecystitis, history of previous substance abuse. SOCIAL HISTORY: No smoking, alcohol or other drugs currently. MEDICINES: See list. ALLERGIES: No known drug allergies. REVIEW OF SYSTEMS: He has lost 10-15 pounds in the last several months with this diverticulitis. Te n system review of systems is otherwise negative as described above. PHYSICAL EXAMINATION: VITAL SIGNS: Blood pressure 119/82, pulse 69, respirations 16. He is afebrile. HEENT: Sclerae are anicteric. Oropharynx is clear. NECK: No lymphadenopathy. CHEST: Clear. HEART: Regular rate and rhythm. ABDOMEN: Soft. He is mildly tender in left lower quadrant without guarding or rebound. No abdomina l hernias. EXTREMITIES: No ischemia or edema to extremities. LABORATORY DATA AND IMAGING DATA: White blood cell count is 7 yesterday, hemoglobin 15, creatinine w as 0.[address] scan is reviewed. There is some question of enterocolic fistula. ASSESSMENT: Diverticulitis, chronic. PLAN: Recommend transition to outpatient antibiotics. See me back in the office in a few weeks. If his symptoms do persist, we could plan for elective colonoscopy followed by colectomy. We did discu ss potential risks and benefits of surgery. Certainly, if he has chronic pain, chronic episodes it w ould be indicated; however, there is significant risks associated with that surgery including infecti on, wound infection, ventral hernia, anastomotic leak, need for permanent colostomy. We will follow up with him as an outpatient.
--- NOTE | 2017-10-28 18:03 | PDOC.EVN ---
Event Note - Event Note Event Note: Patient was out of the room when I went by to see him. I waited for an hour, and he has not returned. Vital signs are normal, and no problems have been reported by the nursing staff. Will see him tomorrow, and plan is for discharge tomorrow
--- NOTE | 2017-10-28 18:19 | PDOC.PN ---
- Subjective Encounter Start Date: 10/28/17 Encounter Start Time: 18:17 Mr. Garsia was seen today in follow-up. He says the pain has improved. He is tolerating a solid diet. - Objective Resuscitation Status: Resuscitation Status FULL:Full Resuscitation MAR Reviewed: Yes Vital Signs & Weight: Vital Signs (12 hours) Temp Pulse Resp BP Pulse Ox 10/28/17 15:00 98.3 F 60 20 123/73 99 10/28/17 10:55 98.2 F 69 16 119/82 97 10/28/17 08:20 98.3 F 60 20 99 10/28/17 07:10 97.6 F 62 20 124/80 99 Weight Weight 239 lb I&O: 10/27/17 10/28/17 10/29/17 06:59 06:59 06:59 Intake Total 4205 3475 Balance 4205 3475 Result Diagrams: 10/27/17 04:35 10/27/17 04:35 Phys Exam - Physical Examination HEENT: PERRLA Respiratory: no wheezing, no rales, no rhonchi, clear to auscultation bilateral Cardiovascular: RRR, no significant murmur, no rub Gastrointestinal: soft + mild left lower quadrant tenderness Dx/Plan (1) Diverticulitis large intestine Code(s): K57.32 - DVTRCLI OF LG INT W/O PERFORATION OR ABSCESS W/O BLEEDING Status: Acute Comment: Continue IV abx, Pt is On Zosyn, Normal WBC, will repeat CT abdomen tomorrow if worseingh pain and no improveemnt. Plan repeat cbc and lactic acid. - Plan * Diverticulitis- General Surgery recommendations noted * He is stable for discharge home.
[2017-10-28 19:36] VITALS: BP 119/89; TEMP 97.9
[2017-10-28] MEDS ORDERED: Amoxicillin/Potassium Clav 875 MG TAB PO SCH (21:00)
--- NOTE | 2017-10-29 02:15 | DIS ---
DATE OF ADMISSION: 10/24/2017 DATE OF DISCHARGE: 10/28/2017 PRIMARY CARE PHYSICIAN: The patient does not have a primary care physician. DISCHARGE DISPOSITION: Home. PRIMARY DISCHARGE DIAGNOSES: 1. Diverticulitis. 2. Allergic rhinitis. DISCHARGE MEDICATIONS Include Augmentin 875 mg twice a day, MiraLax 17 grams daily, Zyrtec 10 mg a d ay. PROCEDURES DONE DURING ADMISSION: The patient had a CT scan of the abdomen and pelvis in which there was evidence of resolving sigmoid diverticulitis without acute complication. There was no obstructi ve uropathy. There was a left-sided renal calculus present. No abscess and there was possibly a col o-colonic fistula in the lower pelvis. CODE STATUS: FULL CODE. ALLERGIES: No known drug allergies. HOSPITAL COURSE: Mr. Garsia is a pleasant 52-year-old gentleman who presented to the emergency room w ith severe left lower abdominal pain and cramping. CT evidence demonstrated acute diverticulitis. Tyra dunn was admitted and started on IV antibiotics. He improved over the course of the next few days. He was concerned; however, this is the fifth episode he has had over the last 2 years and for this reaso n, Gastroenterology was consulted. It was felt best that the patient continue the treatment and have a complete resolution of the inflammatory process prior to having any surgical or endoscopic procedu res done. The information was given to the patient for followup and he was subsequently discharged h ome in stable condition to have close followup with GI as well as Surgery in the outpatient setting.
== END 2017-10-28 19:38 | disposition home or self-care (01) | DRG 392 ==
LOC: ERS 16:37 → SURG B 20:26
PROVIDERS: ADMIT Internal Medicine Infectious Disease; ATTEND Internal Medicine Infectious Disease
DX: K57.32 Diverticulitis of large intestine without perforation or abscess without bleeding (principal); E86.0 Dehydration; E66.01 Morbid (severe) obesity due to excess calories; J30.9 Allergic rhinitis, unspecified; Z68.34 Body mass index [BMI] 34.0-34.9, adult
CPT/HCPCS: 36415; 74018; 74177; 80048; 80053; 81003; 83605; 83690; 83735; 85025; 96365; 96375; 96376; J1650; J1885; J2270; J2405; J2543; J7050

== ENCOUNTER 2017-11-29 18:49 | Inpatient (IN) | payer OTHER, SELFPAY ==
[2017-11-29] MEDS ORDERED: Ondansetron HCl/PF 4 MG/2 ML Vial ONE (19:55)
[2017-11-29 20:03] LABS: #Eosinphils 0.2 thou/uL (0.0-0.7); #Lymphocytes 1.7 thou/uL (1.20-3.40); #Monocytes 0.7 thou/uL (0.11-0.59); #Neutrophils 4.3 thou/uL (1.40-6.50); %Basophils 0.7 % (0.0-1.0); %Eosinophils 2.9 % (0.0-10.0); %Lymphocytes 24.4 % (21.0-51.0); %Monocytes 10.1 % (0.0-10.0); Hemoglobin 16.2 g/dL (14.0-18.0); Mean Corpuscular HGB CONC 33.7 g/dL (32.0-36.0); Mean Corpuscular Hemoglobin 30.2 pg (27.0-31.0); Mean Corpuscular Volume 89.7 fL (78.0-98.0); Mean Platelet Volume 7.7 fL (7.4-10.4); Platelet Count 263 thou/uL (130-400); RBC Distribution Width 12.2 % (11.5-14.5); Red Blood Cell (RBC) Count 5.35 mill/uL (4.70-6.10); White Blood Cell (WBC) Count 6.9 thou/uL (4.8-10.8)
[2017-11-29 20:10] LABS: PTT 27.6 SEC (22.9-36.1); Prothrombin Time 13.7 SEC (12.0-14.7)
[2017-11-29 20:12] LABS: Bilirubin Negative (Negative); Blood, Urine Negative (Negative); Clarity CLEAR (Clear); Glucose, Urine (Dipstick) Negative (Negative); Leukocyte Small (Negative); Nitrite Negative (Negative); Protein, Urine (Dipstick) Negative (Neg-Trace); Specific Gravity, Urine 1.022 (1.002-1.036); Urobilinogen 0.2 mg/dL (0.2-1.0)
[2017-11-29 20:14] LABS: Bacteria/HPF None Seen HPF (None Seen); Hyaline Casts/LPF 0-3 HYALINE CAST LPF (0-3 Hyaline); Pathc Cast-AUWi Flag 0.29 (0-2.49); RBC/HPF 0-3 HPF (0-3); Squamous Epithelial None Seen HPF (0-3); WBC/HPF 0-3 HPF (0-3)
[2017-11-29 20:25] LABS: ALT (SGPT) 38 U/L (8-55); AST (SGOT) 27 U/L (5-34); Alkaline Phosphatase 70 U/L (40-150); Anion Gap 12 mmol/L (10-20); BUN (Urea Nitrogen) 11 mg/dL (8.4-25.7); Bilirubin, Total 0.4 mg/dL (0.2-1.2); Calc. Creatinine Clearance 0 mL/min (70-130); Calcium 8.9 mg/dL (7.8-10.44); Carbon Dioxide 23 mmol/L (22-29); Chloride 107 mmol/L (98-107); Estimated GFR-MDRD Greater than 90; Globulin 3.1 g/dL (2.4-3.5); Glucose 92 mg/dL (70-105); Lipase 17 U/L (8-78); Potassium 3.7 mmol/L (3.5-5.1); Protein, Total 7.1 g/dL (6.0-8.3); Sodium 138 mmol/L (136-145)
--- NOTE | 2017-11-29 20:37 | CT ---
ABDOMEN CT WITH CONTRAST PELVIC CT WITH CONTRAST 11/29/17 COMPARISON: 10/24/17, 10/02/17, 09/25/17. TECHNIQUE: Abdomen and pelvic CT are performed with IV contrast. Enteric contrast is not administered. Coronal r eformatted images are submitted for interpretation. FINDINGS: ABDOMEN CT: Lung bases are clear. Heart size is normal. No pericardial effusion. The descending thoracic aorta an d abdominal aorta have a normal caliber. No periaortic fat stranding. Gallbladder is surgically absent. Portal vein is patent. There is evidence of hepatic steatosis. No enhancing masses in the liver. The spleen, pancreas, and r ight adrenal gland have appropriate enhancement. There is an indeterminate lesion in the left adrenal gland measuring 1.3 x 1.1 cm with attenuation coefficient of 47 Hounsfield units. Symmetric enhancement of the kidneys. Bilaterally, no obstructive uropathy. No gastrohepatic, retrocrural or periportal lymphadenopathy. Nonspecific, nonenlarged mesenteric lymph nodes. No mesenteric mass, lymphadenopathy or free air. No free fluid. Ileocecal junction is unremarkable. Appendix is surgically absent. There is mucosal thick ening involving the distal descending colon, proximal to mid sigmoid colon. the distal sigmoid colon is decompressed as is the rectum. There is evidence of diverticulosis. Inflammatory change due to div erticulitis is noted. No evidence of abscess. No definite bowel perforation. PELVIC CT: No mass, lymphadenopathy, or free air. Small amount of free fluid in the pelvis is noted. IMPRESSION: 1. Redemonstration of inflammatory change involving the left hemicolon compatible with a diverti culitis. No evidence of abscess or perforation. Mucosal prominence is presumed to be due to inflammat ory change. Underlying neoplastic process cannot be excluded. 2. Redemonstration of an indeterminate left adrenal nodule. POS: PPP
[2017-11-29] MEDS ORDERED: Piperacillin/Tazobactam 4.5 GM VIAL ONE (20:57)
[2017-11-29] MEDS ORDERED: Ondansetron HCl/PF 4 MG/2 ML Vial IVP PRN (21:56)
[2017-11-29] MEDS ORDERED: Acetaminophen 325 MG TAB PO PRN (21:56)
[2017-11-30] VITALS: BMI 33.2
[2017-11-30] MEDS: Piperacillin/Tazobactam 3.375 GM in Sodium Chloride 0.9% 100 ML IVPB SCH ×4 (02:41→20:38)
[2017-11-30 05:54] LABS: #Eosinphils 0.1 thou/uL (0.0-0.7); #Lymphocytes 1.8 thou/uL (1.20-3.40); #Monocytes 0.6 thou/uL (0.11-0.59); #Neutrophils 3.9 thou/uL (1.40-6.50); %Basophils 0.6 % (0.0-1.0); %Eosinophils 2.2 % (0.0-10.0); %Lymphocytes 27.3 % (21.0-51.0); %Monocytes 9.6 % (0.0-10.0); %Neutrophils 60.3 % (42.0-75.0); Hemoglobin 15.2 g/dL (14.0-18.0); Mean Corpuscular HGB CONC 33.7 g/dL (32.0-36.0); Mean Corpuscular Hemoglobin 30.5 pg (27.0-31.0); Mean Corpuscular Volume 90.3 fL (78.0-98.0); Mean Platelet Volume 7.8 fL (7.4-10.4); Platelet Count 237 thou/uL (130-400); RBC Distribution Width 12.2 % (11.5-14.5); Red Blood Cell (RBC) Count 4.97 mill/uL (4.70-6.10); White Blood Cell (WBC) Count 6.5 thou/uL (4.8-10.8)
[2017-11-30 06:12] LABS: Anion Gap 12 mmol/L (10-20); BUN (Urea Nitrogen) 10 mg/dL (8.4-25.7); Calc. Creatinine Clearance 152 mL/min (70-130); Calcium 8.6 mg/dL (7.8-10.44); Carbon Dioxide 22 mmol/L (22-29); Chloride 109 mmol/L (98-107); Estimated GFR-MDRD Greater than 90; Glucose 103 mg/dL (70-105); Potassium 3.7 mmol/L (3.5-5.1); Sodium 139 mmol/L (136-145)
--- NOTE | 2017-11-30 09:54 | HP ---
TIME OF EVALUATION 9:15 p.m. PRIMARY CARE PHYSICIAN: [facility]. CODE STATUS: FULL CODE. CHIEF COMPLAINT: Abdominal pain. HISTORY OF PRESENT ILLNESS: This is a 52-year-old male patient with past medical history of divertic ulitis, gallstone, came to the hospital after having abdominal pain, that was moderate, likely trigge red by underlying nonhealing diverticulitis. The patient reported that the pain is in the left lower quadrant, associated with nausea and generalized weakness. He was in the hospital in the past month , on antibiotics of ciprofloxacin. Dr. Fall and Dr. Yi have seen him in the past week, they w ere trying to get a colonoscopy done; however, GI was not inclined to do it. Dr. Fall has seen th e patient and it seems that final decision is to take him for surgery to do hemicolectomy. REVIEW OF SYSTEMS: Constitutional: No fever, no chills, generalized weakness. Respiratory: No cou gh, sputum production, or shortness of breath. Cardiovascular: No chest pain or palpitation. Gastr ointestinal: No nausea, vomiting, abdominal pain, no diarrhea. Central Nervous Systems: No dizzine ss, headache, feeling lightheaded. Genitourinary: No burning on urination. Extremities: No leg sw elling. All other systems were reviewed and negative except for the findings mentioned above. PAST MEDICAL HISTORY: Positive for diverticulitis, gallstones. PAST SURGICAL HISTORY: Cholecystectomy, appendectomy. PSYCHIATRIC HISTORY: No previous psychiatric history. SOCIAL HISTORY: The patient drinks socially every week. The patient currently uses drugs, abuse mar ijuana. No smoking history. KNOWN ALLERGIES: No known drug allergies. REPORTED MEDICATIONS: Metronidazole and ciprofloxacin. PHYSICAL EXAMINATION: VITAL SIGNS: On presentation, blood pressure 114/76, heart rate 82, respiratory rate was 19, tempera ture 97.8. GENERAL APPEARANCE: The patient is alert, oriented, obese, not in acute distress. HEENT: Eyes: Normal conjunctivae. Moist oral mucosa. Anicteric. NECK: No JVD. RESPIRATORY: Bilateral air entry. No rales, no wheezing. Symmetric expansion. CARDIOVASCULAR: Normal rate, regular rhythm. No murmurs, no gallop. EXTREMITIES: No edema. ABDOMEN: Soft, normal bowel sounds. MUSCULOSKELETAL: Baseline range of motion and strength. No tenderness. Peripheral pulses are prese nt. Capillary refill seems to be intact. SKIN: Warm and intact. No pallor, no rash, no redness. NEUROLOGIC: Baseline sensorium. No evidence of any new focal weakness. Baseline speech. Cranial n erves seem to be intact. PSYCHIATRIC: He is in good mood. No anxiety. Oriented, optimal judgment. RADIOLOGY: Abdomen and pelvis CT showed diverticulitis, descending colon with inflammatory changes. LABORATORY DATA: Reviewed. White count 6.9, hemoglobin 16.2, MCV 89, platelet count 263,000. PT 13 .7, INR 1.0, PTT 27.6. Sodium 138, potassium 3.7, chloride 107, carbon dioxide 23, anion gap 12, BUN 11, creatinine 0.8, GFR greater than 90. Glucose 92, calcium 8.9, total bilirubin 0.4, AST 27, ALT 38, alkaline phosphatase 70, serum total protein 7.1, albumin 4.0, globulin 3.1, albumin and globulin ratio 1.3. Lipase 17. Urine was negative. ASSESSMENT AND PLAN: The patient will be placed in the hospital with following medical problems: 1. Sigmoid diverticulitis, patient has had recurrent problems with it, not improving. Next step wou ld be for Dr. Fall to take him to OR and do hemicolectomy, for resolution patient is going to be a dmitted, seems to be stable at this point. 2. Morbidly obese. Advised to lose weight. 3. Deep venous thrombosis prophylaxis. 4. Left adrenal nodule. This was seen again in the CAT scan, unclear etiology, may need further wor kup. 5. Deep venous thrombosis prophylaxis, pain management. 6. Continue empiric antibiotics.
--- NOTE | 2017-11-30 15:08 | PDOC.PN ---
- Subjective Encounter Start Date: 11/30/17 Encounter Start Time: 15:06 Mr. Garsia was seen today in follow-up of Diverticulitis. He continues to have some diffuse abdominal pain, and some nausea, otherwise ok. - Objective Resuscitation Status: Resuscitation Status FULL:Full Resuscitation MAR Reviewed: Yes Vital Signs & Weight: Vital Signs (12 hours) Temp Pulse Resp BP Pulse Ox 11/30/17 07:52 97.5 F L 68 20 106/70 95 Weight Weight 224 lb 13.944 oz I&O: 11/29/17 11/30/17 12/01/17 06:59 06:59 06:59 Intake Total 600 Balance 600 Result Diagrams: 11/30/17 05:21 11/30/17 05:21 Phys Exam - Physical Examination HEENT: PERRLA Respiratory: no wheezing, no rales, no rhonchi, clear to auscultation bilateral Cardiovascular: RRR, no significant murmur, no rub no gallop Gastrointestinal: soft, positive bowel sounds + diffuse abdominal tenderness , no rebound or guarding Musculoskeletal: no edema Dx/Plan (1) Diverticulitis large intestine Code(s): K57.32 - DVTRCLI OF LG INT W/O PERFORATION OR ABSCESS W/O BLEEDING Status: Acute Comment: Continue IV abx, Pt is On Zosyn, Normal WBC, will repeat CT abdomen tomorrow if worseingh pain and no improveemnt. Plan repeat cbc and lactic acid. - Plan * Diverticulitis- Continue empiric antibiotics ( Zosyn) * This is recurrent, and General Surgery was consulted and the plan is for surgery tomorrow.
[2017-11-30] MEDS ORDERED: GoLYTELY 4,000 ml Bottle PO SCH (18:00)
--- NOTE | 2017-11-30 18:43 | CON ---
DATE OF CONSULTATION: 11/30/2017 HISTORY OF PRESENT ILLNESS: Mr. Garsia is readmitted for ongoing diverticulitis. He was not tolerati ng the outpatient antibiotics. Had nausea, vomiting and continued pain. He feels better now. PHYSICAL EXAMINATION: VITAL SIGNS: He is afebrile, pulse 68, respirations 18, blood pressure 117/80. ABDOMEN: Soft. He is tender in the left abdomen with localized guarding. For past medical and surgical history, see my past progress note. ASSESSMENT: Acute on chronic diverticulitis, unable to resolve as an outpatient. PLAN: Sigmoid colectomy plus or minus colostomy tomorrow. We will attempt to prep today with GoLYTE LY. Risks, benefits and alternatives discussed. He gives consent. We will do that tomorrow.
[2017-12-01] MEDS: Piperacillin/Tazobactam 3.375 GM in Sodium Chloride 0.9% 100 ML IVPB SCH ×3 (03:22→16:35)
[2017-12-01] MEDS ORDERED: Midazolam HCl 2 mg/2 ml Vial ONE ×2 (08:03→10:04)
[2017-12-01] MEDS ORDERED: Fentanyl 100 MCG/2 ML VIAL ONE ×2 (08:04→10:04)
[2017-12-01] MEDS ORDERED: Dexamethasone 4 mg/ml Vial ONE (09:29)
[2017-12-01] MEDS ORDERED: Fentanyl 250 MCG/5 ML VIAL ONE ×2 (10:15→11:22)
[2017-12-01] MEDS ORDERED: Bupivacaine/Epinephrine 0.25% 30 ML VIAL ONE (10:21)
[2017-12-01] MEDS ORDERED: Ondansetron HCl/PF 4 MG/2 ML Vial IVP PRN ×4 (10:27→13:17)
[2017-12-01] MEDS ORDERED: Promethazine HCl 25 MG/ML VIAL IM PRN ×3 (11:59→15:43)
[2017-12-01] MEDS ORDERED: Meperidine HCl/PF 25 MG/ML VIAL SLOW IVP PRN (11:59)
[2017-12-01] MEDS ORDERED: HYDROmorphone 2 MG/ML VIAL SLOW IVP PRN (11:59)
[2017-12-01] MEDS ORDERED: Bupivacaine HCl 0.5%/Epinephrine 1:200,000/PF 30 ml Vial ONE (12:46)
[2017-12-01] MEDS ORDERED: diphenhydrAMINE 25 MG CAP PO PRN (13:17)
[2017-12-01] MEDS ORDERED: diphenhydrAMINE 50 MG/ML VIAL IVP PRN (13:17)
[2017-12-01] MEDS ORDERED: Naloxone HCl 0.4 mg/ml Vial IV PRN (13:17)
[2017-12-01] MEDS ORDERED: diphenhydrAMINE 50 MG/ML VIAL IM PRN (13:17)
[2017-12-01] MEDS ORDERED: Zolpidem Tartrate 5 MG TAB PO PRN (13:17)
[2017-12-01] MEDS ORDERED: PHENYLEPHRINE-NS 100 MCG/ML 10 ML SYRINGE ONE (13:22)
[2017-12-01] MEDS ORDERED: PROPOFOL 200 MG/20 ML VIAL ONE (13:22)
[2017-12-01] MEDS ORDERED: Dexamethasone 20 MG/5 ML VIAL ONE (13:22)
[2017-12-01] MEDS ORDERED: Glycopyrrolate 0.2 MG/ML 5 ML SYRINGE ONE (13:22)
[2017-12-01] MEDS ORDERED: Ondansetron HCl/PF 4 MG/2 ML Vial ONE (13:22)
[2017-12-01] MEDS ORDERED: ePHEDrine/0.9% NaCl/PF SYRINGE 50 mg/10 ml ONE (13:22)
[2017-12-01] MEDS ORDERED: Lidocaine 1% PF 5 ML VIAL ONE (13:22)
[2017-12-01] MEDS ORDERED: Communication Order-Pharmacy FS SCH (13:30)
[2017-12-01] MEDS ORDERED: HYDROmorphone 2 MG/ML VIAL ONE (13:30)
[2017-12-01] MEDS ORDERED: Promethazine HCl 25 MG/ML VIAL ONE (13:46)
[2017-12-01] MEDS ORDERED: hydrALAZINE 20 MG/ML VIAL SLOW IVP PRN (15:43)
[2017-12-01] MEDS ORDERED: Piperacillin/Tazobactam 3.375 GM in Sodium Chloride 0.9% 100 ML IVPB SCH (16:15)
[2017-12-01] MEDS ORDERED: Meperidine HCl/PF 25 MG/ML VIAL SLOW IVP SCH (17:00)
--- NOTE | 2017-12-01 17:23 | PDOC.PN ---
- Subjective Encounter Start Date: 12/01/17 Encounter Start Time: 17:21 Mr. Garsia was seen today in follow-up of diverticulitis. He has returned from surgery, and is having quite a bit of pain in is abdomen. He denies shortness of breath, or chest discomfort. - Objective Resuscitation Status: Resuscitation Status FULL:Full Resuscitation MAR Reviewed: Yes Vital Signs & Weight: Vital Signs (12 hours) Temp Pulse Resp BP Pulse Ox 12/01/17 07:41 97.5 F L 75 18 106/72 96 Weight Weight 224 lb 13.944 oz I&O: 11/30/17 12/01/17 12/02/17 06:59 06:59 06:59 Intake Total 600 Balance 600 Result Diagrams: 11/30/17 05:21 11/30/17 05:21 Additional Labs: Accuchecks 12/01/17 13:19 POC Glucose 140 H Phys Exam - Physical Examination HEENT: PERRLA Respiratory: no wheezing, no rales, no rhonchi, clear to auscultation bilateral Cardiovascular: RRR, no significant murmur, no rub Gastrointestinal: soft + diffuse tenderness, bowel sounds are diminished Musculoskeletal: no edema Dx/Plan (1) Diverticulitis large intestine Code(s): K57.32 - DVTRCLI OF LG INT W/O PERFORATION OR ABSCESS W/O BLEEDING Status: Acute Comment: Continue IV abx, Pt is On Zosyn, Normal WBC, will repeat CT abdomen tomorrow if worseingh pain and no improveemnt. Plan repeat cbc and lactic acid. - Plan * Diverticulitis- continue Zosyn, and [employer] for pain control * Agree with Lovenox for DVT prophylaxis.
[2017-12-01] MEDS: Acetaminophen 1,000 MG in Premix Bag 1 BAG IVPB SCH (18:04)
--- NOTE | 2017-12-01 20:10 | OP ---
DATE OF PROCEDURE: 12/01/2017 PREOPERATIVE DIAGNOSIS: Acute on chronic diverticulitis. POSTOPERATIVE DIAGNOSIS: Acute on chronic diverticulitis. PROCEDURES PERFORMED: 1. Laparoscopic converted to open sigmoid colectomy with colostomy (Megan's procedure). 2. Splenic flexure mobilization. SURGEON: Brenden Fall M.D. ANESTHESIA: General. ESTIMATED BLOOD LOSS: Minimal. COMPLICATIONS: None. SPECIMEN: Left colon. TECHNIQUE: The patient was taken to the operating room and placed supine on the table. After genera l anesthetic was obtained, the patient was placed in lithotomy position. A Glass was placed. The ab domen was shaved, prepped, and draped in a sterile fashion. Left subcostal 5-mm Optiview trocar was placed in the usual fashion. High-flow pneumoperitoneum was obtained. Right lower quadrant 12 mm po rt as well as a right umbilical 5 mm port were placed under direct visualization, suprapubic 5 mm por t was placed as well. The patient was placed in Trendelenburg position. The small bowel was rotated out of the pelvis. The peritoneum was incised on the medial aspect of the sigmoid colon. The left ureter was found and excluded from the dissection. The mesentery was taken using Impact LigaSure. T he patient had local inflammatory change severe to the posterior wall of the bladder. This could not be dissected off laparoscopic ,decision was made to open. All ports were removed. Midline incision was made. Cautery was used to enter the abdominal cavity. Bookwalter retractor was placed. Bluntl y, the sigmoid colon was able to be manipulated away from the bladder without obvious injury. The le ft ureter was found and excluded from the dissection. Contour stapler fired across the upper rectum. The mesentery was taken using Impact LigaSure, Laura clamp and silk ties. The splenic flexure of karin gomez was then mobilized in the usual fashion. Abdomen and pelvis was irrigated using sterile solutio n until returns are clear. A 2-0 Prolene was used to maldonado the Megan pouch below. Seprafilm was p laced in the pelvis. Ellipse of skin taken out in the left abdomen and the colon was brought out her e. Contour stapler was fired across the colon proximal to the area of chronic inflammatory change. All instrument counts, needle counts, lap counts were correct. Seprafilm placed on the omentum. The fascia was then closed using #1 PDS from the top and the bottom and tied in the middle. Subcutaneou s tissues were irrigated, closed loosely using skin clips. Telfa nancy were placed in between the wo unds. This wound was dressed. The colostomy was immature in the typical fashion using 3-0 Vicryl christopher ture and ostomy device was placed. The patient was en route to recovery in stable condition. All in strument counts, needle counts, lap counts were correct.
[2017-12-01] MEDS: Famotidine/PF 20 mg/2ml Vial SLOW IVP SCH (21:08)
[2017-12-01] MEDS: Enoxaparin Sodium 40 MG/0.4 ML SYRINGE SC SCH (21:18)
[2017-12-01] MEDS: Famotidine 20 MG TAB PO SCH (21:18)
[2017-12-02] MEDS: Acetaminophen 1,000 MG in Premix Bag 1 BAG IVPB SCH ×3 (00:36→12:39)
[2017-12-02] MEDS: D5 1/2 NS w/20 mEq KCL 1,000 ML IV SCH ×3 (02:24→17:51)
[2017-12-02] MEDS: HYDROmorphone 10 mg/100 ml CADD IVPB PRN ×2 (02:35→12:38)
[2017-12-02 04:46] LABS: #Lymphocytes 1.3 thou/uL (1.20-3.40); #Monocytes 1.4 thou/uL (0.11-0.59); #Neutrophils 7.8 thou/uL (1.40-6.50); %Eosinophils 0.2 % (0.0-10.0); %Lymphocytes 12.1 % (21.0-51.0); %Neutrophils 74.7 % (42.0-75.0); Hemoglobin 14.7 g/dL (14.0-18.0); Mean Corpuscular HGB CONC 33.8 g/dL (32.0-36.0); Mean Corpuscular Hemoglobin 30.4 pg (27.0-31.0); Mean Corpuscular Volume 89.8 fL (78.0-98.0); Mean Platelet Volume 7.3 fL (7.4-10.4); Platelet Count 261 thou/uL (130-400); RBC Distribution Width 12.1 % (11.5-14.5); Red Blood Cell (RBC) Count 4.84 mill/uL (4.70-6.10); White Blood Cell (WBC) Count 10.4 thou/uL (4.8-10.8)
[2017-12-02 05:13] LABS: Anion Gap 10 mmol/L (10-20); BUN (Urea Nitrogen) 6 mg/dL (8.4-25.7); Calc. Creatinine Clearance 170 mL/min (70-130); Calcium 8.5 mg/dL (7.8-10.44); Carbon Dioxide 23 mmol/L (22-29); Chloride 105 mmol/L (98-107); Estimated GFR-MDRD Greater than 90; Glucose 142 mg/dL (70-105); Potassium 4.2 mmol/L (3.5-5.1); Sodium 134 mmol/L (136-145)
[2017-12-02] MEDS: Famotidine 20 MG TAB PO SCH ×2 (08:43→20:32)
[2017-12-02] MEDS: Famotidine/PF 20 mg/2ml Vial SLOW IVP SCH ×2 (08:44→20:32)
[2017-12-02] MEDS: Ondansetron HCl/PF 4 MG/2 ML Vial IVP PRN (09:07)
--- NOTE | 2017-12-02 12:44 | PRG ---
DATE OF SERVICE: 12/02/2017 Mr. Garsia is postop day #1, sigmoid colectomy with colostomy. Pain is controlled. No nausea with th e clear liquids. He has already been walking. He is afebrile and his vital signs are stable. His u rine output is adequate. His abdomen is soft, it is distended, and appropriately tender. Midline dr essings are in place. There is some drainage secondary to the mao. Colostomy mucosa is pink. The re is no stool or air in the bag just yet. His white blood cell count is 10, hemoglobin 14. Creatin ine is 0.74. ASSESSMENT: Postoperative day #1, sigmoid colectomy with colostomy for acute on chronic diverticulit is. PLAN: Full liquids tonight if doing well. Mao need to be removed from his wound on Tuesday. His c olon was dissected off the backside of his bladder. So, we will order a cystogram tomorrow before th e catheter is removed.
--- NOTE | 2017-12-02 14:23 | PDOC.PN ---
- Subjective Encounter Start Date: 12/02/17 Encounter Start Time: 14:21 Mr. Garsia was seen today in follow-up of diverticulitis. He is post-op day 1, and was seen up walking in the halls. He returned to his room. He says the pain is much better controlled, and has tolerated a clear liquid diet. , - Objective Resuscitation Status: Resuscitation Status FULL:Full Resuscitation MAR Reviewed: Yes Vital Signs & Weight: Vital Signs (12 hours) Temp Pulse Resp BP BP Pulse Ox 12/02/17 11:59 98.6 F 77 16 136/90 95 12/02/17 07:46 98.3 F 75 18 113/77 95 12/02/17 04:00 98.4 F 84 18 138/91 H 96 Weight Weight 224 lb 13.944 oz I&O: 12/01/17 12/02/17 12/03/17 06:59 06:59 06:59 Intake Total 2955 Output Total 1950 Balance 1005 Result Diagrams: 12/02/17 04:34 12/02/17 04:34 Phys Exam - Physical Examination HEENT: PERRLA Respiratory: no wheezing, no rales, no rhonchi, clear to auscultation bilateral Cardiovascular: RRR, no significant murmur, no rub Gastrointestinal: soft, positive bowel sounds +mildly distended, + diffuse tenderness Musculoskeletal: no edema Dx/Plan (1) Diverticulitis large intestine Code(s): K57.32 - DVTRCLI OF LG INT W/O PERFORATION OR ABSCESS W/O BLEEDING Status: Acute Comment: Continue IV abx, Pt is On Zosyn, Normal WBC, will repeat CT abdomen tomorrow if worseingh pain and no improveemnt. Plan repeat cbc and lactic acid. - Plan * Recurrent Diverticulitis, s/p partial bowel resection- he is toerating a clear liquid diet * Continue post-op management per surgery * Blood pressure is stable.
[2017-12-02] MEDS: Enoxaparin Sodium 40 MG/0.4 ML SYRINGE SC SCH (20:28)
[2017-12-03] MEDS: HYDROmorphone 10 mg/100 ml CADD IVPB PRN (00:17)
[2017-12-03] MEDS: D5 1/2 NS w/20 mEq KCL 1,000 ML IV SCH ×2 (03:45→08:16)
[2017-12-03] MEDS: Famotidine/PF 20 mg/2ml Vial SLOW IVP SCH ×2 (08:17→21:14)
[2017-12-03] MEDS: Famotidine 20 MG TAB PO SCH ×2 (08:21→21:05)
[2017-12-03] MEDS: traMADol HCl 50 MG TAB PO SCH ×3 (11:57→23:14)
[2017-12-03] MEDS: Acetaminophen 500 MG TAB PO SCH ×3 (11:57→23:14)
--- NOTE | 2017-12-03 12:03 | RAD ---
CYSTOGRAM: HISTORY: Recent sigmoid colectomy. Concern for bladder injury. FINDINGS: The central aisle cashier film demonstrates a left-sided colostomy. There are postop changes in the abdomen and pelv is. There is normal retrograde filling of the urinary bladder with 350 mL of iodinated contrast by an ind welling Glass catheter. The urinary bladder demonstrates no filling defects or contrast extravasatio n. There is a moderate amount of post void residual on the post drainage image. IMPRESSION: No evidence of bladder leak. POS: ROSE
[2017-12-03] MEDS: Ibuprofen 800 MG TAB PO SCH ×2 (14:07→21:13)
--- NOTE | 2017-12-03 15:07 | PDOC.PN ---
- Subjective Encounter Start Date: 12/03/17 Encounter Start Time: 15:05 Mr. Garsia was seen today in follow-up of Recurrent Diverticulitis. He has better pain control today no new complaints. - Objective Resuscitation Status: Resuscitation Status FULL:Full Resuscitation MAR Reviewed: Yes Vital Signs & Weight: Vital Signs (12 hours) Temp Pulse Resp BP BP Pulse Ox 12/03/17 11:08 98.8 F 97 18 123/78 98 12/03/17 07:05 98.7 F 92 18 128/90 95 12/03/17 03:55 98.6 F 92 16 131/82 95 Weight Weight 224 lb 13.944 oz I&O: 12/02/17 12/03/17 12/04/17 06:59 06:59 06:59 Intake Total 2955 3560 Output Total 1950 3625 Balance 1005 -65 Result Diagrams: 12/02/17 04:34 12/02/17 04:34 Phys Exam - Physical Examination Respiratory: no wheezing, no rales, no rhonchi, clear to auscultation bilateral Cardiovascular: RRR, no significant murmur, no rub Gastrointestinal: soft, non-tender, no distention, positive bowel sounds Musculoskeletal: no edema Dx/Plan (1) Diverticulitis large intestine Code(s): K57.32 - DVTRCLI OF LG INT W/O PERFORATION OR ABSCESS W/O BLEEDING Status: Acute Comment: Continue IV abx, Pt is On Zosyn, Normal WBC, will repeat CT abdomen tomorrow if worseingh pain and no improveemnt. Plan repeat cbc and lactic acid. - Plan * Diverticulitis- his diet has been advanced to a full liquid diet * Education on Ostomy care * Ambulate.
--- NOTE | 2017-12-03 16:21 | PRG ---
DATE OF SERVICE: 12/03/2017 SUBJECTIVE: Mr. Garsia is a 52-year-old man who is postoperative day #2, status post Megan's proce dure. The patient reports adequate pain control. He is tolerating clear liquid diet. Urinary outpu t is adequate. OBJECTIVE: VITAL SIGNS: Today includes blood pressure 128/90, pulse 92, respiratory rate is 18, temperature is 98.7 degrees Fahrenheit, oxygen saturation 95% on room air. HEART: Reveals regular rate and rhythm. No murmurs or gallops auscultated. LUNGS: Clear to auscultation bilaterally. Breathing regular and unlabored. ABDOMEN: Soft and moderately distended. Incisions are intact, clean, and dry. Colostomy is viable and edematous, but functional. The patient clearly has no peritoneal signs on examination. NEUROLOGIC: Reveals no focal deficits present. IMPRESSION: 1. Postoperative day #2, status post Megan's procedure. 2. The patient is hemodynamically stable. PLAN: 1. Discontinue FOOD AND BEVERAGE CHECKER and initiate oral analgesics. 2. Discontinue Glass catheter as the cystogram reveals no evidence of bladder injury. 3. Increase activity as tolerated. Above findings and plan discussed with the patient who indicates understanding of information given. I answered his questions.
[2017-12-03] MEDS: traMADol HCl 50 MG TAB PO PRN ×2 (17:12→23:14)
[2017-12-03] MEDS: Enoxaparin Sodium 40 MG/0.4 ML SYRINGE SC SCH (21:13)
[2017-12-04] MEDS: Acetaminophen 500 MG TAB PO SCH ×4 (05:21→23:33)
[2017-12-04] MEDS: Ibuprofen 800 MG TAB PO SCH ×3 (05:21→21:01)
[2017-12-04] MEDS: traMADol HCl 50 MG TAB PO SCH ×4 (05:22→23:33)
[2017-12-04] MEDS: Famotidine 20 MG TAB PO SCH ×2 (08:17→20:42)
[2017-12-04] MEDS: Famotidine/PF 20 mg/2ml Vial SLOW IVP SCH ×2 (08:51→22:33)
--- NOTE | 2017-12-04 10:29 | PDOC.PN ---
- Subjective Encounter Start Date: 12/04/17 Encounter Start Time: 10:28 cc: aBDOMINAL PAIN Sub: Pt says pain controlled - Objective Resuscitation Status: Resuscitation Status FULL:Full Resuscitation Vital Signs & Weight: Vital Signs (12 hours) Temp Pulse Resp BP BP Pulse Ox 12/04/17 07:51 98 F 83 18 110/78 98 12/04/17 04:00 98.2 F 77 16 112/75 98 12/04/17 00:00 98.5 F 84 16 104/71 96 Weight Admit Weight 224 lb 13.944 oz Weight 224 lb 13.944 oz I&O: 12/03/17 12/04/17 12/05/17 06:59 06:59 06:59 Intake Total 3560 2019 Output Total 3625 2425 Balance -65 -405 Result Diagrams: 12/02/17 04:34 12/02/17 04:34 Phys Exam - Physical Examination Constitutional: NAD HEENT: moist MMs, oral pharynx no lesions Neck: no JVD Respiratory: no wheezing, no rales Cardiovascular: RRR, no significant murmur Gastrointestinal: soft positive colostomy bag, positive dressing, positive deepak Musculoskeletal: no edema Neurological: non-focal, moves all 4 limbs Lymphatic: no nodes Psychiatric: normal affect Skin: no rash Dx/Plan - Plan Dx/Plan (1) Diverticulitis large intestine Code(s): K57.32 - DVTRCLI OF LG INT W/O PERFORATION OR ABSCESS W/O BLEEDING Status: Acute Comment: Continue IV abx, Pt is On Zosyn, Normal WBC, will repeat CT abdomen tomorrow if worseingh pain and no improveemnt. Plan repeat cbc and lactic acid. 2. Abdominal pain 3. S/P Megan procedure - Plan * Dcontinue postop care * PRN pain meds. Monitor respiratory status closely * Education on Ostomy care * Ambulate. case d/w pt & RN
--- NOTE | 2017-12-04 15:56 | PRG ---
DATE OF SERVICE: 12/04/2017 SUBJECTIVE: The patient is postop day #3 status post Megan's procedure. He has had no issues ove rnight. He states that his pain is controlled. He has had a small amount of air and stool again in his colostomy. He states that he is ambulating frequently as directed. PHYSICAL EXAMINATION: VITAL SIGNS: Temperature is 98.0 degrees, heart rate 83, blood pressure 110/78, respirations 18, oxy gen saturation 98% on room air. LUNGS: Clear to auscultation bilaterally. HEART: Regular rate and rhythm. ABDOMEN: Soft, nontender. His incision is clean, dry, and intact. The nancy have been removed. Th ere was no purulent discharge and minimal blood and serous fluid was noted and the colostomy bag has air and a small amount of liquid stool in it. LABORATORY DATA: There are no labs or radiographs to review this morning. ASSESSMENT AND PLAN: Status post Megan's procedure postop day #3. Plan will be to continue suppo rtive care. He will undergo colostomy instructions and once he is able to transition over to a regul ar diet, likely be discharged.
[2017-12-04] MEDS: Enoxaparin Sodium 40 MG/0.4 ML SYRINGE SC SCH (20:43)
[2017-12-05] MEDS: Ibuprofen 800 MG TAB PO SCH ×3 (05:52→21:05)
[2017-12-05] MEDS: Acetaminophen 500 MG TAB PO SCH ×3 (05:52→18:23)
[2017-12-05] MEDS: traMADol HCl 50 MG TAB PO SCH ×4 (05:53→23:26)
[2017-12-05] MEDS: Famotidine 20 MG TAB PO SCH ×2 (08:49→20:17)
[2017-12-05] MEDS: Famotidine/PF 20 mg/2ml Vial SLOW IVP SCH ×2 (08:50→21:10)
[2017-12-05] MEDS: Ondansetron HCl/PF 4 MG/2 ML Vial IVP PRN (11:23)
[2017-12-05] MEDS ORDERED: HYDROcodone/Acetaminophen 10/325 mg Tablet PO PRN ×3 (11:44→14:50)
--- NOTE | 2017-12-05 11:47 | PDOC.GSPN ---
Surgery Progress Note: Subj - Subjective Narrative: c/o bloating, no nausea Surgery Progress Note: Obj - Vital signs Vital signs: Vital Signs - Most Recent Temp Pulse Resp BP Pulse Ox 97.9 F 83 16 144/83 H 100 12/05/17 08:10 12/05/17 08:10 12/05/17 08:10 12/05/17 08:10 12/05/17 08:10 - Physical Exam General: no distress Cardiovascular: regular rate and rhythm Respiratory: clear to auscultation Abdomen: soft, appropriately tender Wound: healing well, ostomy/colostomy (stool and air in bag) Surgery Progress Note: Results - Labs Result Diagrams: 12/02/17 04:34 12/02/17 04:34 Surgery Progress Note: A/P - Problem (1) Diverticulitis large intestine Current Visit: No Code(s): K57.32 - DVTRCLI OF LG INT W/O PERFORATION OR ABSCESS W/O BLEEDING Status: Acute - Plan Plan: GI soft diet Colostomy teaching possible home tomorrow
--- NOTE | 2017-12-05 13:54 | PDOC.PN ---
- Subjective Encounter Start Date: 12/05/17 Encounter Start Time: 12:15 -: old records requested/rev Pt seen and examined, chart reviewed in its entirety, this is my first visit with this patient Follow up for diverticulitis, POD 4 hartmans procedure and colostomy. pain controlled with meds, pt was trying to avoid using them initially because of sedation No F/C, no n/V/D/C, no CP or SOB, no acute overnight events, no new complaints All systems reviewed and neg for all systems except as stated above - Objective Resuscitation Status: Resuscitation Status FULL:Full Resuscitation MAR Reviewed: Yes Vital Signs & Weight: Vital Signs (12 hours) Temp Pulse Resp BP BP Pulse Ox 12/05/17 12:16 98.3 F 86 18 124/85 100 12/05/17 08:10 97.9 F 83 16 144/83 H 100 12/05/17 04:45 98.3 F 78 16 134/82 98 Weight Admit Weight 224 lb 13.944 oz Weight 224 lb 13.944 oz I&O: 12/04/17 12/05/17 12/06/17 06:59 06:59 06:59 Intake Total 2020 960 Output Total 2425 100 Balance -405 860 Result Diagrams: 12/02/17 04:34 12/02/17 04:34 Radiology Reviewed by me: Yes EKG Reviewed by me: Yes Phys Exam - Physical Examination Constitutional: NAD HEENT: PERRLA, moist MMs, sclera anicteric, oral pharynx no lesions Neck: no nodes, no JVD, supple, full ROM Respiratory: no wheezing, no rales, no rhonchi, clear to auscultation bilateral Cardiovascular: RRR, no significant murmur, no rub Gastrointestinal: soft, non-tender, no distention, positive bowel sounds colostomy intact, air and stool in bag Musculoskeletal: no edema Neurological: non-focal, normal sensation, moves all 4 limbs Lymphatic: no nodes Psychiatric: normal affect, A&O x 3 Skin: no rash, normal turgor, cap refill <2 seconds Dx/Plan (1) Megan's pouch of intestine Code(s): Z93.3 - COLOSTOMY STATUS Status: Acute (2) Diverticulitis large intestine Code(s): K57.32 - DVTRCLI OF LG INT W/O PERFORATION OR ABSCESS W/O BLEEDING Status: Acute Qualifiers: Diverticulitis bleeding: without bleeding Diverticulitis complication: without perforation or abscess Qualified Code(s): K57.32 - Diverticulitis of large intestine without perforation or abscess without bleeding Comment: Continue IV abx, Pt is On augmentin, Normal WBC possible discharge tomorrow. advance diet per surgery (3) Moderate dehydration Code(s): E86.0 - DEHYDRATION Status: Acute Comment: IV fluids, good urine output. - Plan cont current plan of care, continue antibiotics, PT/OT, out of bed/ambulate * .
[2017-12-05] MEDS ORDERED: Acetaminophen 500 MG TAB PO PRN (18:30)
[2017-12-05] MEDS: Enoxaparin Sodium 40 MG/0.4 ML SYRINGE SC SCH (20:17)
[2017-12-06] MEDS: traMADol HCl 50 MG TAB PO SCH ×2 (05:11→13:15)
[2017-12-06] MEDS: Ibuprofen 800 MG TAB PO SCH ×2 (05:11→14:32)
[2017-12-06] MEDS: Famotidine 20 MG TAB PO SCH (08:54)
[2017-12-06] MEDS: Famotidine/PF 20 mg/2ml Vial SLOW IVP SCH (09:00)
--- NOTE | 2017-12-06 10:01 | DIS ---
DATE OF ADMISSION: 11/29/2017 DATE OF DISCHARGE: 12/06/2017 ADMIT DIAGNOSIS: Acute on chronic diverticulitis. DISCHARGE DIAGNOSIS: Acute on chronic diverticulitis. PROCEDURES: Sigmoid colectomy and colostomy by Dr. Fall without complication. CONDITION AT DISCHARGE: Improved. STAFF: Dr. Brenden Fall. HOSPITAL COURSE: The patient underwent left colectomy for his chronic diverticulitis. This required open surgery. On postop day #2, he underwent a cystogram to rule out bladder leakage due to the fac t that the colon was fused to the colon. This was confirmed to be okay. His Glass was removed. His expected postop ileus slowly resolved, his diet has been advanced as tolerated. On the day of disch arge, he is tolerating a GI soft diet. His pain is controlled. He is being discharged home. He had colostomy teaching. He is going to keep his wound covered with dry gauze and tape until he sees me back, change that daily. He will call me with any issues.
[2017-12-06 12:04] VITALS: BP 116/79; TEMP 98.4
--- NOTE | 2017-12-06 13:37 | PDOC.PN ---
- Subjective Encounter Start Date: 12/06/17 Encounter Start Time: 10:15 discharging per surgery, pain controlled, tolerating diet. No F/C, no N/V/D/C, no CP or SOB, no acute overnight events, no new complaints All systems reviewed and neg except as stated above - Objective Resuscitation Status: Resuscitation Status FULL:Full Resuscitation MAR Reviewed: Yes Vital Signs & Weight: Vital Signs (12 hours) Temp Pulse Resp BP BP Pulse Ox 12/06/17 12:04 98.4 F 90 18 116/79 98 12/06/17 08:30 98 F 80 20 121/85 96 12/06/17 04:37 98 F 72 18 123/86 99 Weight Admit Weight 224 lb 13.944 oz Weight 224 lb 13.944 oz I&O: 12/05/17 12/06/17 12/07/17 06:59 06:59 06:59 Intake Total 960 1840 Output Total 100 100 Balance 860 1740 Result Diagrams: 12/02/17 04:34 12/02/17 04:34 Phys Exam - Physical Examination Constitutional: NAD HEENT: PERRLA, moist MMs, sclera anicteric, oral pharynx no lesions Neck: no nodes, no JVD, supple, full ROM Respiratory: no wheezing, no rales, no rhonchi, clear to auscultation bilateral Cardiovascular: RRR, no significant murmur, no rub Gastrointestinal: soft, non-tender, no distention, positive bowel sounds colostomy with air and stool Musculoskeletal: no edema, pulses present Neurological: non-focal, normal sensation, moves all 4 limbs Lymphatic: no nodes Psychiatric: normal affect, A&O x 3 Skin: no rash, normal turgor, cap refill <2 seconds Dx/Plan (1) Megan's pouch of intestine Code(s): Z93.3 - COLOSTOMY STATUS Status: Acute (2) Diverticulitis large intestine Code(s): K57.32 - DVTRCLI OF LG INT W/O PERFORATION OR ABSCESS W/O BLEEDING Status: Resolved Qualifiers: Diverticulitis bleeding: without bleeding Diverticulitis complication: without perforation or abscess Qualified Code(s): K57.32 - Diverticulitis of large intestine without perforation or abscess without bleeding Comment: off abx D/C today advance diet per surgery (3) Moderate dehydration Code(s): E86.0 - DEHYDRATION Status: Resolved Comment: IV fluids, good urine output. - Plan * .
== END 2017-12-06 15:53 | disposition home or self-care (01) | DRG 330 ==
LOC: ERS 18:49 → T4-A 23:14 → SURG A 12-01 14:57
PROVIDERS: ADMIT Hospitalist; ATTEND Hospitalist
PROC: 0DTG0ZZ Resection of Left Large Intestine, Open Approach (ICD-10-PCS; principal; 2017-12-01)
PROC: 0D1N0Z4 Bypass Sigmoid Colon to Cutaneous, Open Approach (ICD-10-PCS; 2017-12-01)
PROC: 3E0M05Z Introduction of Adhesion Barrier into Peritoneal Cavity, Open Approach (ICD-10-PCS; 2017-12-01)
DX: K57.32 Diverticulitis of large intestine without perforation or abscess without bleeding (principal); F19.20 Other psychoactive substance dependence, uncomplicated; K91.30 Postprocedural intestinal obstruction, unspecified as to partial versus complete; F12.20 Cannabis dependence, uncomplicated; E66.01 Morbid (severe) obesity due to excess calories; Z68.33 Body mass index [BMI] 33.0-33.9, adult; Z53.31 Laparoscopic surgical procedure converted to open procedure; E86.0 Dehydration
CPT/HCPCS: 36415; 36416; 51600; 74177; 74430; 80048; 80053; 81003; 81015; 82274; 83690; 85025; 85610; 85730; 88307; 96361; 96365; 96375; J0131; J0670; J1100; J1170; J1650; J2001; J2175; J2250; J2405; J2543; J2550; J2704; J3010; J7050; Q9968; S0028

== ENCOUNTER 2018-01-05 12:24 | Emergency (ER) | payer OTHER, SELFPAY ==
[2018-01-05] MEDS ORDERED: Metoclopramide HCl 10 MG/2 ML VIAL ONE (12:57)
[2018-01-05 13:09] LABS: #Basophils 0.1 thou/uL (0.0-0.2); #Monocytes 0.6 thou/uL (0.11-0.59); #Neutrophils 6.3 thou/uL (1.40-6.50); %Basophils 0.7 % (0.0-1.0); %Eosinophils 0.4 % (0.0-10.0); %Lymphocytes 12.8 % (21.0-51.0); %Neutrophils 78.1 % (42.0-75.0); Hemoglobin 15.9 g/dL (14.0-18.0); Mean Corpuscular HGB CONC 33.2 g/dL (32.0-36.0); Mean Corpuscular Hemoglobin 29.3 pg (27.0-31.0); Mean Corpuscular Volume 88.2 fL (78.0-98.0); Mean Platelet Volume 7.8 fL (7.4-10.4); Platelet Count 249 thou/uL (130-400); RBC Distribution Width 11.9 % (11.5-14.5); Red Blood Cell (RBC) Count 5.43 mill/uL (4.70-6.10)
[2018-01-05 13:38] LABS: ALT (SGPT) 21 U/L (8-55); AST (SGOT) 16 U/L (5-34); Albumin 4.1 g/dL (3.5-5.0); Alkaline Phosphatase 69 U/L (40-150); Anion Gap 14 mmol/L (10-20); BUN (Urea Nitrogen) 11 mg/dL (8.4-25.7); Bilirubin, Total 0.9 mg/dL (0.2-1.2); Calc. Creatinine Clearance 0 mL/min (70-130); Calcium 9.3 mg/dL (7.8-10.44); Carbon Dioxide 23 mmol/L (22-29); Chloride 105 mmol/L (98-107); Estimated GFR-MDRD Greater than 90; Globulin 3.4 g/dL (2.4-3.5); Glucose 98 mg/dL (70-105); Lipase 13 U/L (8-78); Potassium 3.7 mmol/L (3.5-5.1); Protein, Total 7.5 g/dL (6.0-8.3); Sodium 138 mmol/L (136-145)
[2018-01-05 13:41] LABS: Troponin I Less than 0.010 ng/mL (< 0.028)
[2018-01-05 13:56] LABS: Bilirubin Negative (Negative); Blood, Urine Negative (Negative); Clarity CLEAR (Clear); Glucose, Urine (Dipstick) Negative (Negative); Leukocyte Small (Negative); Nitrite Negative (Negative); Protein, Urine (Dipstick) Trace mg/dL (Neg-Trace); Specific Gravity, Urine 1.024 (1.002-1.036)
[2018-01-05 13:58] LABS: Bacteria/HPF None Seen HPF (None Seen); Hyaline Casts/LPF 0-3 HYALINE CAST LPF (0-3 Hyaline); RBC/HPF 0-3 HPF (0-3); Squamous Epithelial 0-3 HPF (0-3); WBC/HPF 0-3 HPF (0-3)
== END 2018-01-05 16:17 | disposition home or self-care (01) ==
LOC: ERS 12:24
DX: R11.2 Nausea with vomiting, unspecified (principal); R10.9 Unspecified abdominal pain
CPT/HCPCS: 36415; 80053; 81003; 81015; 83605; 83690; 84484; 85025; 96365; J2765

== ENCOUNTER 2018-02-13 10:56 | Outpatient (CLI) | payer OTHER, SELFPAY ==
[2018-02-13 12:02] LABS: Anion Gap 10 mmol/L (10-20); BUN (Urea Nitrogen) 14 mg/dL (8.4-25.7); Calc. Creatinine Clearance 0 mL/min (70-130); Calcium 9.1 mg/dL (7.8-10.44); Carbon Dioxide 24 mmol/L (22-29); Chloride 109 mmol/L (98-107); Estimated GFR-MDRD Greater than 90; Glucose 102 mg/dL (70-105); Potassium 4.1 mmol/L (3.5-5.1); Sodium 139 mmol/L (136-145)
== END 2018-02-13 10:57 | disposition home or self-care (01) ==
LOC: LABBT 10:56
PROVIDERS: ATTEND Surgery
DX: Z01.812 Encounter for preprocedural laboratory examination (principal); K57.92 Diverticulitis of intestine, part unspecified, without perforation or abscess without bleeding
CPT/HCPCS: 80048

== ENCOUNTER 2018-02-13 11:30 | Inpatient (IN) | payer OTHER, SELFPAY ==
[2018-02-13 11:39] VITALS: BMI 34.3
[2018-02-16] MEDS ORDERED: Gabapentin 300 MG CAP ONE (12:43)
[2018-02-16] MEDS ORDERED: CeleCOXIB 100 MG CAP ONE (12:43)
[2018-02-16] MEDS ORDERED: cefOXitin Sodium/Dextrose,Iso 2 GM in Premix Bag 1 BAG IVPB SCH (13:00)
[2018-02-16] MEDS ORDERED: Fentanyl 100 MCG/2 ML VIAL ONE ×4 (13:11→16:30)
[2018-02-16] MEDS ORDERED: Midazolam HCl 2 mg/2 ml Vial ONE ×2 (13:11→13:29)
[2018-02-16] MEDS ORDERED: Lidocaine 1% PF 5 ML VIAL ONE (13:27)
[2018-02-16] MEDS ORDERED: PROPOFOL 200 MG/20 ML VIAL ONE (13:27)
[2018-02-16] MEDS ORDERED: PHENYLEPHRINE-NS 100 MCG/ML 10 ML SYRINGE ONE (13:27)
[2018-02-16] MEDS ORDERED: Glycopyrrolate 0.2 MG/ML 5 ML SYRINGE ONE (13:27)
[2018-02-16] MEDS ORDERED: Ondansetron PF 4 MG/2 ML Vial ONE (13:27)
[2018-02-16] MEDS ORDERED: Fentanyl 250 MCG/5 ML VIAL ONE (13:29)
[2018-02-16] MEDS ORDERED: Promethazine HCl 25 MG/ML VIAL IM PRN ×3 (15:38→18:40)
[2018-02-16] MEDS ORDERED: Promethazine HCl 25 MG/ML VIAL SLOW IVP PRN (15:38)
[2018-02-16] MEDS ORDERED: Ondansetron HCl/PF 4 MG/2 ML Vial IVP PRN (15:38)
[2018-02-16] MEDS ORDERED: fentaNYL Citrate/PF 2,000 MCG in Sodium Chloride 0.9% 60 ML IV PRN (16:02)
[2018-02-16] MEDS ORDERED: diphenhydrAMINE 50 MG/ML VIAL IVP PRN (16:02)
[2018-02-16] MEDS ORDERED: Ondansetron PF 4 MG/2 ML Vial IVP PRN ×2 (16:02→18:40)
[2018-02-16] MEDS ORDERED: diphenhydrAMINE 25 MG CAP PO PRN (16:02)
[2018-02-16] MEDS ORDERED: diphenhydrAMINE 50 MG/ML VIAL IM PRN (16:02)
[2018-02-16] MEDS ORDERED: Zolpidem Tartrate 5 MG TAB PO PRN (16:02)
[2018-02-16] MEDS ORDERED: Naloxone HCl 0.4 mg/ml Vial IV PRN (16:02)
[2018-02-16] MEDS ORDERED: Ketorolac Tromethamine 30 MG/ML VIAL ONE (16:04)
[2018-02-16] MEDS ORDERED: Promethazine HCl 25 MG/ML VIAL ONE (16:12)
[2018-02-16] MEDS ORDERED: Communication Order-Pharmacy FS SCH (16:15)
[2018-02-16] MEDS ORDERED: Acetaminophen 1,000 MG in Premix Bag 1 BAG IVPB SCH ×2 (16:15→20:00)
[2018-02-16] MEDS ORDERED: Fentanyl 100 MCG/2 ML VIAL SLOW IVP PRN (18:40)
[2018-02-16] MEDS ORDERED: hydrALAZINE 20 MG/ML VIAL SLOW IVP PRN (18:40)
[2018-02-16] MEDS: Ketorolac Tromethamine 30 MG/ML VIAL IVP SCH (18:42)
[2018-02-16] MEDS ORDERED: Bupivacaine HCl 0.5%/Epinephrine 1:200,000/PF 30 ml Vial ONE (19:15)
[2018-02-16] MEDS: Famotidine/PF 20 mg/2ml Vial SLOW IVP SCH (21:34)
[2018-02-16] MEDS: Acetaminophen 1,000 MG in Premix Bag 1 BAG IVPB SCH (21:34)
[2018-02-16] MEDS: Sodium Chloride 0.9% 1,000 ML IV SCH (21:37)
[2018-02-16] MEDS: Enoxaparin Sodium 40 MG/0.4 ML SYRINGE SC SCH (21:38)
[2018-02-16] MEDS: Famotidine 20 MG TAB PO SCH (21:42)
[2018-02-16] MEDS ORDERED: cefOXitin 2 GM in Sodium Chloride 0.9% 100 ML IVPB SCH (22:00)
--- NOTE | 2018-02-16 22:06 | OP ---
DATE OF PROCEDURE: 02/16/2018 PREOPERATIVE DIAGNOSIS: Diverticulitis, attention to colostomy. POSTOPERATIVE DIAGNOSIS: Diverticulitis, attention to colostomy. PROCEDURE PERFORMED: Colostomy takedown with colorectal anastomosis. ANESTHESIA: General. ESTIMATED BLOOD LOSS: 100 mL. COMPLICATIONS: None. TECHNIQUE: The patient was taken to the operating room and laid in supine on the operating room table after general anesthetic was obtained. A Glass was placed. The patient was placed in lithotomy position. Abdomen was shaved, prepped, and draped in a sterile fashion. A midline incision was reopened. Cautery dissected down into the abdominal cavity very carefully without injury. All posterior abdominal adhesions were taken down. There were minimal adhesions in the abdomen. The rectal stump in the pelvis was exposed and dissected circumferentially down to the upper rectum, here a contour stapler was fired across the rectum making a new fresh rectal pouch. The colostomy was ellipsed out on the skin down into the abdominal cavity, some adhesions at the previous splenic flexure mobilization were taken down again. This allowed the upper colon segment to reach down in the pelvis under no tension. Colotomy was made on the end of the colostomy segment and a 31 EEA passed proximally, its tip brought on the antimesenteric surface of the colon just distal to this the contour reloaded and fired across the colon, mesentery was taken using the LigaSure. The upper colon was able to be reached down in the pelvis under no tension. The base with 31 EEA was brought up through the anus, sharp end brought out on the antimesenteric surface of the rectum below connected to the anvil from above. The stapler was fired down. There were 2 good rings of tissue. The staple lines were oversewn using silk pop offs. The anastomosis tested using air insufflation under water without obvious leakage. The abdomen and pelvis were irrigated using sterile solution until returns were clear. All instrument counts, needle counts, and lap counts were correct. The posterior fascia at the colostomy site was closed using PDS as was the anterior fascia. Midline fascia was closed with #1 PDS from top to bottom and tied in the middle. Everyone changed their gloves. All instrument counts, needle counts, lap counts had been correct. The subcutaneous tissues were irrigated using sterile solution. There was no ongoing bleeding. The midline incision was closed using 3-0 Vicryl, 4-0 Monocryl and Dermabond. The colostomy site was closed using pursestring of Prolene and a Jessica was left in the middle. Sterile dressings were placed. The patient was then returned to Recovery in stable condition. All instrument counts, needle counts, and lap counts were correct. Job ID: [id number]
[2018-02-16] MEDS: cefOXitin Sodium/Dextrose,Iso 2 GM in Premix Bag 1 BAG IVPB SCH (22:16)
[2018-02-17] MEDS: Ketorolac Tromethamine 30 MG/ML VIAL IVP SCH ×4 (00:58→18:00)
[2018-02-17] MEDS: Acetaminophen 1,000 MG in Premix Bag 1 BAG IVPB SCH ×3 (04:43→16:34)
[2018-02-17] MEDS: cefOXitin Sodium/Dextrose,Iso 2 GM in Premix Bag 1 BAG IVPB SCH (06:09)
[2018-02-17 06:35] LABS: #Lymphocytes 1.4 thou/uL (1.20-3.40); #Monocytes 1.1 thou/uL (0.11-0.59); #Neutrophils 9.1 thou/uL (1.40-6.50); %Basophils 0.1 % (0.0-1.0); %Eosinophils 0.1 % (0.0-10.0); %Lymphocytes 12.2 % (21.0-51.0); %Monocytes 9.1 % (0.0-10.0); %Neutrophils 78.4 % (42.0-75.0); Hemoglobin 14.6 g/dL (14.0-18.0); Mean Corpuscular HGB CONC 33.7 g/dL (32.0-36.0); Mean Corpuscular Hemoglobin 28.9 pg (27.0-31.0); Mean Corpuscular Volume 85.8 fL (78.0-98.0); Mean Platelet Volume 7.8 fL (7.4-10.4); Platelet Count 290 thou/uL (130-400); RBC Distribution Width 11.8 % (11.5-14.5); Red Blood Cell (RBC) Count 5.04 mill/uL (4.70-6.10); White Blood Cell (WBC) Count 11.5 thou/uL (4.8-10.8)
[2018-02-17 06:56] LABS: Anion Gap 10 mmol/L (10-20); BUN (Urea Nitrogen) 9 mg/dL (8.4-25.7); Calc. Creatinine Clearance 162 mL/min (70-130); Calcium 8.7 mg/dL (7.8-10.44); Carbon Dioxide 26 mmol/L (22-29); Chloride 105 mmol/L (98-107); Estimated GFR-MDRD Greater than 90; Glucose 122 mg/dL (70-105); Potassium 4.6 mmol/L (3.5-5.1); Sodium 136 mmol/L (136-145)
[2018-02-17] MEDS ORDERED: Dexamethasone 4 mg/ml Vial ONE (07:01)
[2018-02-17] MEDS ORDERED: Cetirizine HCl 10 MG TAB PO SCH (09:00)
[2018-02-17] MEDS: Loratadine 10 MG TAB PO SCH (09:20)
[2018-02-17] MEDS: Famotidine 20 MG TAB PO SCH ×2 (09:20→20:17)
[2018-02-17] MEDS: Famotidine/PF 20 mg/2ml Vial SLOW IVP SCH ×2 (09:23→21:33)
[2018-02-17] MEDS: Sodium Chloride 0.9% 1,000 ML IV SCH (09:24)
[2018-02-17] MEDS ORDERED: traMADol HCl 50 MG TAB PO PRN (10:08)
--- NOTE | 2018-02-17 10:32 | PRG ---
DATE OF SERVICE: 02/17/2018 SUBJECTIVE: Postop day 1, colostomy takedown. Mr. Garsia is doing well. He is tolerating the clear liquids without difficulty. He is ambulating multiple times. His pain is controlled. OBJECTIVE: VITAL SIGNS: Blood pressure 106/75, pulse 78, and respirations 16. He is afebrile. GENITOURINARY: He has had good urine output. His catheter has now been removed. ABDOMEN: Soft. Wound healing well. Dressings are with small amount of drainage in the left lower quadrant. LABORATORY DATA: Hemoglobin is 14, platelet count is 290. Creatinine 0.78. ASSESSMENT: Postop day 1, colostomy takedown. PLAN: Convert to oral pain control. Advance to full-liquid diet. Hep-Lock IV. Likely home tomorrow. Job ID: [id number]
[2018-02-17] MEDS: HYDROcodone/Acetaminophen 10/325 mg Tablet PO PRN ×2 (11:53→18:00)
[2018-02-17] MEDS: Fentanyl 100 MCG/2 ML VIAL SLOW IVP PRN ×3 (13:21→21:27)
[2018-02-17] MEDS: Enoxaparin Sodium 40 MG/0.4 ML SYRINGE SC SCH (20:16)
[2018-02-18] MEDS: Ketorolac Tromethamine 30 MG/ML VIAL IVP SCH ×4 (00:30→17:20)
[2018-02-18] MEDS: HYDROcodone/Acetaminophen 10/325 mg Tablet PO PRN ×5 (00:38→23:32)
[2018-02-18] MEDS: Loratadine 10 MG TAB PO SCH (08:37)
[2018-02-18] MEDS: Famotidine/PF 20 mg/2ml Vial SLOW IVP SCH ×2 (08:37→20:45)
[2018-02-18] MEDS: Famotidine 20 MG TAB PO SCH ×2 (08:37→19:52)
--- NOTE | 2018-02-18 09:21 | PRG ---
DATE OF SERVICE: 02/18/2018 SUBJECTIVE: Postop day 2 colostomy takedown. Mr. Garsia is feeling pretty well. He has had a bowel movement. He has mild nausea and bloating. He is on a full liquid diet. OBJECTIVE: VITAL SIGNS: He is afebrile. Vital signs are stable. GENITOURINARY: Multiple voids. ABDOMEN: His abdomen is soft, minimally distended, but active bowel sounds. Midline wound is healing well. There is one area of bleeding where the skin glue has come off. His drain is removed from his left lower quadrant colostomy site. ASSESSMENT: Postop day 2 colostomy takedown. PLAN: Continue full liquids today. Encouraged ambulation. Potentially home tomorrow if doing well. Job ID: [id number]
[2018-02-18] MEDS: Enoxaparin Sodium 40 MG/0.4 ML SYRINGE SC SCH (19:52)
[2018-02-19] MEDS: Fentanyl 100 MCG/2 ML VIAL SLOW IVP PRN (01:34)
[2018-02-19] MEDS: HYDROcodone/Acetaminophen 10/325 mg Tablet PO PRN ×2 (06:51→13:55)
[2018-02-19] MEDS: Famotidine 20 MG TAB PO SCH (08:30)
[2018-02-19] MEDS: Loratadine 10 MG TAB PO SCH (08:30)
[2018-02-19] MEDS: Famotidine/PF 20 mg/2ml Vial SLOW IVP SCH (08:38)
--- NOTE | 2018-02-19 09:16 | DIS ---
DATE OF ADMISSION: 02/16/2018 DATE OF DISCHARGE: 02/19/2018 ADMITTING DIAGNOSES: History of diverticulitis, attention to colostomy. DISCHARGE DIAGNOSES: History of diverticulitis, attention to colostomy. PROCEDURE: Colostomy takedown by Dr. Fall without complication. CONDITION ON DISCHARGE: Improved. STAFF: Dr. Fall. HOSPITAL COURSE: On postoperative day #3, the patient has mild nausea and bloating, but he was ambulatory, tolerating full liquid diet. He was discharged to home. DISCHARGE MEDICATIONS: Include [place] 10 as well as Zofran, sent to [facility] in [facility] in . DISCHARGE INSTRUCTIONS: He will follow up with me in 2 weeks. He will keep his wounds covered until they stop draining. See me in 2 weeks, call me sooner if he has any other acute issues. Job ID: [id number]
[2018-02-19 11:36] VITALS: BP 127/87; TEMP 98.2
== END 2018-02-19 14:20 | disposition home or self-care (01) | DRG 345 ==
LOC: SURG A 02-16 11:55
PROVIDERS: ADMIT Surgery; ATTEND Surgery
PROC: 0DSL0ZZ Reposition Transverse Colon, Open Approach (ICD-10-PCS; principal; 2018-02-16)
DX: Z43.3 Encounter for attention to colostomy (principal); K57.92 Diverticulitis of intestine, part unspecified, without perforation or abscess without bleeding
CPT/HCPCS: 36415; 36416; 80048; 85025; J0131; J0670; J0694; J1100; J1650; J1885; J2001; J2250; J2405; J2550; J2704; J3010; J7050; S0028

== ENCOUNTER 2018-02-15 10:01 | Day surgery (SDC) | payer OTHER, SELFPAY ==
[2018-02-13 11:42] VITALS: BMI 34.3
--- NOTE | 2018-02-16 08:20 | OP ---
DATE OF PROCEDURE: 02/15/2018 PROCEDURES PERFORMED: Colonoscopy via stoma and pouchoscopy of Megan's pouch with polypectomies. PREPROCEDURE DIAGNOSES: 1. History of diverticular abscess, status post resection with descending colostomy and Meagn's pouch. 2. Colorectal cancer screening. POSTPROCEDURE DIAGNOSES: 4 polyps, ranging in size from 3 to 7 mm, semi-sessile were encountered throughout the colon and removed by hot snare polypectomy and submitted to Pathology. One of the polyps was not actually retrieved, but it was removed. RECOMMENDATIONS: 1. The patient can proceed with takedown of ostomy tomorrow as surgically planned. 2. Repeat colonoscopy for screening purposes and for surveillance purposes in 5 years. ANESTHESIA: TIVA. PROCEDURE IN DETAIL: The patient was informed of the risks, benefits, and possible complications of the endoscopy including perforation, bleeding, reaction to medication, and aspiration. Informed consent was obtained. The patient was brought to the endoscopy suite where he was sedated in a gradual fashion. Digital exam of his colostomy site was performed, which was normal. The endoscope was advanced through the colostomy and through the colon into the cecum, which was identified by the ileocecal valve and appendiceal orifice. The scope was then slowly removed. There was good visualizing of the mucosa. There were 4 polyps, noted to be scattered throughout the colon, removed by hot snare polypectomy. These were ranging in size from 3 to 7 cm in size. All but one was retrieved. Retroflexed views were not performed at the ostomy site. The scope was then removed. The patient was turned on his side and a rectal examination was performed. The endoscope was advanced through the anal canal to the apex of the Megan's pouch. Mucosa appeared fairly normal. There was lot of mucus and the prep was not as good as the colonoscopy part of the exam, but no large lesions or masses were seen. Retroflexed views were normal. The scope was removed. The patient tolerated the procedure well without any complications. Job ID: [id number]
== END 2018-02-15 14:25 | disposition home or self-care (01) ==
LOC: SDC 10:01
PROVIDERS: ATTEND Internal Medicine Gastroenterology
PROC: 0DBM8ZX Excision of Descending Colon, Via Natural or Artificial Opening Endoscopic, Diagnostic (ICD-10-PCS; principal; 2018-02-15)
PROC: 0DBK8ZX Excision of Ascending Colon, Via Natural or Artificial Opening Endoscopic, Diagnostic (ICD-10-PCS; principal; 2018-02-15)
DX: Z12.11 Encounter for screening for malignant neoplasm of colon (principal); D12.6 Benign neoplasm of colon, unspecified; Z87.891 Personal history of nicotine dependence; Z79.899 Other long term (current) drug therapy; Z90.49 Acquired absence of other specified parts of digestive tract; Z93.3 Colostomy status
CPT/HCPCS: 88305

== ENCOUNTER 2018-02-24 09:56 | Emergency (ER) | payer OTHER, SELFPAY ==
[2018-02-24 11:34] LABS: #Eosinphils 0.3 thou/uL (0.0-0.7); #Lymphocytes 1.2 thou/uL (1.20-3.40); #Monocytes 0.6 thou/uL (0.11-0.59); #Neutrophils 4.8 thou/uL (1.40-6.50); %Basophils 0.6 % (0.0-1.0); %Eosinophils 3.6 % (0.0-10.0); %Lymphocytes 17.7 % (21.0-51.0); %Monocytes 9.1 % (0.0-10.0); Hemoglobin 14.5 g/dL (14.0-18.0); Mean Corpuscular HGB CONC 33.3 g/dL (32.0-36.0); Mean Corpuscular Hemoglobin 28.5 pg (27.0-31.0); Mean Corpuscular Volume 85.5 fL (78.0-98.0); Platelet Count 326 thou/uL (130-400); RBC Distribution Width 11.8 % (11.5-14.5); Red Blood Cell (RBC) Count 5.11 mill/uL (4.70-6.10)
--- NOTE | 2018-02-24 11:39 | RAD ---
ACUTE ABDOMINAL SERIES: DATE: 02/24/2018. PROVIDED CLINICAL HISTORY: Abdominal pain. FINDINGS: Comparison 10/25/2017. Cardiac and mediastinal silhouette is within normal limits. Lungs appear filemon r. No pleural fluid or pneumothorax apparent. The abdominal bowel gas pattern is nonspecific. No evidence for pneumoperitoneum. No radiographical ly apparent urinary tract calculi. Cholecystectomy clips are seen in the right upper quadrant. IMPRESSION: No evidence for an acute process. POS: MARY
[2018-02-24] MEDS ORDERED: Ketorolac Tromethamine 30 MG/ML VIAL ONE (12:07)
[2018-02-24] MEDS ORDERED: Bisacodyl 10 MG SUPP ONE (12:07)
[2018-02-24 12:14] LABS: ALT (SGPT) 18 U/L (8-55); AST (SGOT) 20 U/L (5-34); Albumin 3.5 g/dL (3.5-5.0); Alkaline Phosphatase 75 U/L (40-150); Anion Gap 14 mmol/L (10-20); BUN (Urea Nitrogen) 8 mg/dL (8.4-25.7); Bilirubin, Total 0.4 mg/dL (0.2-1.2); Calc. Creatinine Clearance 0 mL/min (70-130); Calcium 9.2 mg/dL (7.8-10.44); Carbon Dioxide 16 mmol/L (22-29); Chloride 107 mmol/L (98-107); Estimated GFR-MDRD Greater than 90; Globulin 3.6 g/dL (2.4-3.5); Glucose 95 mg/dL (70-105); Lipase 11 U/L (8-78); Potassium 4.3 mmol/L (3.5-5.1); Protein, Total 7.1 g/dL (6.0-8.3); Sodium 133 mmol/L (136-145)
[2018-02-24] MEDS ORDERED: Fleet Enema 133 ML BOT PR SCH (12:15)
== END 2018-02-24 14:08 | disposition home or self-care (01) ==
LOC: ERS 09:56
DX: G89.18 Other acute postprocedural pain (principal); K59.00 Constipation, unspecified
CPT/HCPCS: 74022; 80053; 83690; 85025; 96374; J1885

== ENCOUNTER 2019-08-03 06:21 | Outpatient (CLI) | payer OTHER ==
--- NOTE | 2019-08-03 11:15 | RAD ---
TWO VIEWS OF THE CHEST: DATE: 08/03/2019. COMPARISON: None available. HISTORY: Preoperative patient. FINDINGS: No pneumothorax, pleural fluid, focal consolidation, or alveolar edema. Heart and mediastinal contou rs are unremarkable. IMPRESSION: No acute findings. POS: FLAVIO
[2019-08-03 17:50] LABS: SARS-CoV-2 MS2 Positive; SARS-CoV-2 N Gene Negative; SARS-CoV-2 S Gene Negative; SARS-CoV-2 orf1ab Negative
== END 2019-08-03 06:22 | disposition home or self-care (01) ==
LOC: LABBT 06:21
PROVIDERS: ATTEND Orthopaedic Surgery
DX: Z01.818 Encounter for other preprocedural examination (principal); Z11.59 Encounter for screening for other viral diseases; M17.12 Unilateral primary osteoarthritis, left knee
CPT/HCPCS: 71046; 87635; 93005; 93010; U0003

== ENCOUNTER 2019-08-03 08:30 | Inpatient (IN) | payer OTHER ==
[2019-08-03 09:54] LABS: #Eosinphils 0.3 thou/uL (0.0-0.7); #Lymphocytes 1.6 thou/uL (1.20-3.40); #Monocytes 0.5 thou/uL (0.11-0.59); %Basophils 0.5 % (0.0-1.0); %Eosinophils 4.3 % (0.0-10.0); %Lymphocytes 21.3 % (21.0-51.0); %Monocytes 6.6 % (0.0-10.0); %Neutrophils 67.3 % (42.0-75.0); Hemoglobin 15.5 g/dL (14.0-18.0); Mean Corpuscular HGB CONC 33.4 g/dL (32.0-36.0); Mean Corpuscular Hemoglobin 29.8 pg (27.0-31.0); Mean Corpuscular Volume 89.4 fL (78.0-98.0); Mean Platelet Volume 7.2 fL (7.4-10.4); Platelet Count 294 thou/uL (130-400); RBC Distribution Width 12.6 % (11.5-14.5); Red Blood Cell (RBC) Count 5.21 mill/uL (4.70-6.10); White Blood Cell (WBC) Count 7.4 thou/uL (4.8-10.8)
[2019-08-03 10:14] LABS: Anion Gap 10 mmol/L (10-20); BUN (Urea Nitrogen) 17 mg/dL (8.4-25.7); Calc. Creatinine Clearance 0 mL/min (70-130); Calcium 8.6 mg/dL (7.8-10.44); Carbon Dioxide 24 mmol/L (22-29); Chloride 109 mmol/L (98-107); Estimated GFR-MDRD Greater than 90; Glucose 122 mg/dL (70-105); Potassium 3.9 mmol/L (3.5-5.1); Sodium 139 mmol/L (136-145)
[2019-08-07] MEDS ORDERED: Fentanyl 100 MCG/2 ML VIAL ONE ×5 (08:32→13:28)
[2019-08-07] MEDS ORDERED: Midazolam HCl 2 mg/2 ml Vial ONE (08:32)
[2019-08-07] MEDS ORDERED: Sodium Chloride 0.9% 100 ML ONE (08:54)
[2019-08-07] MEDS ORDERED: Vancomycin 1.5 GRAM/300 ML BAG 1.5 GM/300 ML BAG ONE (08:54)
[2019-08-07] MEDS ORDERED: Tranexamic Acid 1,000 MG/10 ML VIAL ONE (08:54)
[2019-08-07] MEDS ORDERED: Promethazine HCl 25 MG/ML VIAL IM PRN ×2 (09:30→12:16)
[2019-08-07] MEDS ORDERED: Ropivacaine HCl/PF 250 ML in Premix Bag 1 BAG NERVE BLCK SCH (09:30)
[2019-08-07] MEDS ORDERED: Fentanyl 100 MCG/2 ML VIAL IV PRN (09:30)
[2019-08-07] MEDS ORDERED: HYDROcodone/Acetaminophen 5/325 mg Tablet PO PRN ×2 (09:30)
[2019-08-07] MEDS ORDERED: Ondansetron PF 4 MG/2 ML Vial IVP PRN ×2 (09:30→12:16)
[2019-08-07] MEDS ORDERED: traMADol HCl 50 MG TAB PO PRN ×2 (09:30)
[2019-08-07] MEDS ORDERED: Zolpidem Tartrate 5 MG TAB PO PRN ×2 (09:30→12:16)
[2019-08-07] MEDS ORDERED: Bupivacaine 0.25% HCL 30 ML VIAL ONE (10:05)
[2019-08-07] MEDS ORDERED: Lidocaine 1% w/Epinephrine 1:100K 20 ML VIAL ONE (10:05)
[2019-08-07] MEDS ORDERED: HYDROmorphone 2 MG/ML VIAL ONE (10:30)
[2019-08-07] MEDS ORDERED: Ondansetron PF 4 MG/2 ML Vial ONE ×2 (11:42→13:00)
[2019-08-07] MEDS ORDERED: Ketorolac Tromethamine 30 MG/ML VIAL IVP SCH ×2 (12:00→14:00)
[2019-08-07] MEDS ORDERED: Fentanyl 100 MCG/2 ML VIAL SLOW IVP PRN ×2 (12:16)
[2019-08-07] MEDS ORDERED: HYDROcodone/Acetaminophen 10/325 mg Tablet PO PRN (12:16)
[2019-08-07] MEDS ORDERED: diphenhydrAMINE 25 MG CAP PO PRN (12:16)
[2019-08-07] MEDS ORDERED: Acetaminophen 325 MG TAB PO PRN (12:16)
[2019-08-07] MEDS ORDERED: Promethazine HCl 25 MG/ML VIAL ONE (12:22)
[2019-08-07] MEDS ORDERED: PROPOFOL 200 MG/20 ML VIAL ONE (13:00)
[2019-08-07] MEDS ORDERED: Lidocaine 1% PF 5 ML VIAL ONE (13:00)
[2019-08-07] MEDS ORDERED: Ropivacaine 0.2% HCl/PF (40 MG/20 ML VIAL) ONE (13:00)
[2019-08-07] MEDS ORDERED: Bupivacaine HCl 0.5%/Epinephrine 1:200,000/PF 30 ml Vial ONE (13:00)
[2019-08-07] MEDS ORDERED: Ketorolac Tromethamine 30 MG/ML VIAL ONE (13:00)
[2019-08-07] MEDS ORDERED: Dexamethasone 20 MG/5 ML VIAL ONE (13:00)
--- NOTE | 2019-08-07 13:48 | RAD ---
LEFT KNEE 2 VIEWS: Date: 08/07/2019 HISTORY: Left BKA. FINDINGS/IMPRESSION: There are recent postop changes postop changes of total knee arthroplasty in good position and alignm ent. Soft tissue air is present. POS: SJDI
[2019-08-07 15:04] LABS: #Lymphocytes 0.6 thou/uL (1.20-3.40); #Monocytes 0.2 thou/uL (0.11-0.59); #Neutrophils 16.1 thou/uL (1.40-6.50); %Basophils 0.1 % (0.0-1.0); %Eosinophils 0.2 % (0.0-10.0); %Lymphocytes 3.6 % (21.0-51.0); %Monocytes 1.2 % (0.0-10.0); %Neutrophils 94.9 % (42.0-75.0); Hemoglobin 15.9 g/dL (14.0-18.0); Mean Corpuscular HGB CONC 33.6 g/dL (32.0-36.0); Mean Corpuscular Hemoglobin 30.5 pg (27.0-31.0); Mean Corpuscular Volume 90.7 fL (78.0-98.0); Platelet Count 268 thou/uL (130-400); RBC Distribution Width 12.9 % (11.5-14.5)
[2019-08-07] MEDS: Sodium Chloride 0.9% 1,000 ML IV SCH ×2 (15:14→23:36)
[2019-08-07] MEDS ORDERED: hydrALAZINE 20 MG/ML VIAL SLOW IVP PRN (15:20)
[2019-08-07 15:24] LABS: Anion Gap 11 mmol/L (10-20); BUN (Urea Nitrogen) 16 mg/dL (8.4-25.7); Calc. Creatinine Clearance 172 mL/min (70-130); Calcium 8.6 mg/dL (7.8-10.44); Carbon Dioxide 26 mmol/L (22-29); Chloride 106 mmol/L (98-107); Estimated GFR-MDRD Greater than 90; Glucose 120 mg/dL (70-105); Potassium 4.4 mmol/L (3.5-5.1); Sodium 139 mmol/L (136-145)
--- NOTE | 2019-08-07 15:54 | CON ---
DATE OF CONSULTATION: REASON FOR CONSULTATION: Medical management. CHIEF COMPLAINT: Elective left total knee replacement. HISTORY OF PRESENT ILLNESS: A 54-year-old male without significant past medical history, undergone an elective total knee replacement today. The patient has a history of diverticulitis and had a colostomy takedown without any complication by Dr. Fall in February 2018. History of iron deficiency, but he does not take any supplement. Only medication he takes over the counter antihistamine for allergy. The patient has no history of diabetes or hypertension, [place] or stroke. Postsurgery, he is doing well. He is little somnolent, but able to give me enough information about his medical background. REVIEW OF SYSTEMS: A 13-point review of systems was reviewed briefly with the patient. It appears no major medical concerns and no major health issues. No recent fever, night sweats, chills, or productive cough. No lower extremity edema. No headache, tingling, numbness, or weakness in his extremities. Rest of the review of systems is negative. ALLERGIES: NO KNOWN DRUG ALLERGIES. PAST MEDICAL HISTORY: Diverticulitis and colostomy removal in February [address] Fall. PAST SURGICAL HISTORY: Cholecystectomy and appendectomy. He has a history of left adrenal nodule that was documented in 2018, but he does not have any other followup on that. It appears quite benign. He needs to follow with the primary care physician. SOCIAL HISTORY: The patient does have occasional drinker, but no smoking. FAMILY HISTORY: Both parents had cardiovascular disease and mother had diabetes as well. PHYSICAL EXAMINATION: VITAL SIGNS: He is afebrile and normotensive currently. GENERAL: Little somnolent, just came from PACU. Otherwise, he looks nontoxic. He is obese. CARDIOVASCULAR: Regular rate and rhythm without murmurs, rubs, or gallops. LUNGS: Clear to auscultation bilaterally without wheezing, rales, or rhonchi. ABDOMEN: Soft, nontender, nondistended. Good bowel sounds. EXTREMITIES: Again, left leg has dressing. NEUROLOGIC: No focal neurological deficits. LABORATORY DATA: His labs that I have ordered comes back with white count of 17,000. His creatinine is 0.74. His blood glucose is 120. IMPRESSION AND PLAN: This is a 54-year-old male without significant past medical history, undergone left total knee replacement. Fortunately, he does not have major medical issues that we need to address currently. His leukocytosis is probably of stress/demargination. We will repeat the CBC in the morning and we will follow up. He can resume his regular diet History of left adrenal nodule. No further workup in the past. The patient does not have any clinical indication at this time to pursue along that line. He can be followed in the outpatient setting by PCP if deemed necessary. Hydralazine p.r.n. to keep his systolic blood pressure below 150. Deep venous thrombosis prophylaxis with anticoagulation as well as Physical Therapy initiation per orthopedic's discretion. Please do not hesitate to call me if you have any questions or concerns. Thank you so much for the consult. I will follow him tomorrow closely. Job ID: [id number] MTDD
[2019-08-07] MEDS: HYDROcodone/Acetaminophen 10/325 mg Tablet PO PRN (16:13)
[2019-08-07] MEDS: CEFAZOLIN 2 GM in Premix Bag 1 BAG IVPB SCH (18:33)
[2019-08-07] MEDS: Ketorolac Tromethamine 30 MG/ML VIAL IVP SCH (18:33)
[2019-08-07] MEDS: Aspirin 81 mg Enteric Coated Tablet PO SCH (20:20)
[2019-08-07] MEDS ORDERED: Vancomycin HCl 1.5 GM in Sodium Chloride 0.9% 250 ML 300 ML IVPB SCH (21:00)
[2019-08-07] MEDS ORDERED: Vancomycin 1.5 GRAM/300 ML BAG 1.5 GM in Premix Bag 1 BAG IVPB SCH (21:00)
[2019-08-07] MEDS: traMADol HCl 50 MG TAB PO PRN (21:28)
[2019-08-08] MEDS: CEFAZOLIN 2 GM in Premix Bag 1 BAG IVPB SCH (01:00)
[2019-08-08] MEDS: Ketorolac Tromethamine 30 MG/ML VIAL IVP SCH ×3 (01:00→17:05)
[2019-08-08] MEDS: HYDROcodone/Acetaminophen 10/325 mg Tablet PO PRN ×5 (01:03→21:21)
[2019-08-08 05:23] LABS: #Lymphocytes 1.2 thou/uL (1.20-3.40); #Neutrophils 10.5 thou/uL (1.40-6.50); %Basophils 0.1 % (0.0-1.0); %Eosinophils 0.2 % (0.0-10.0); %Lymphocytes 9.1 % (21.0-51.0); %Monocytes 7.8 % (0.0-10.0); %Neutrophils 82.8 % (42.0-75.0); Hemoglobin 13.3 g/dL (14.0-18.0); Mean Corpuscular HGB CONC 32.1 g/dL (32.0-36.0); Mean Corpuscular Hemoglobin 29.1 pg (27.0-31.0); Mean Corpuscular Volume 90.6 fL (78.0-98.0); Mean Platelet Volume 7.8 fL (7.4-10.4); Platelet Count 247 thou/uL (130-400); RBC Distribution Width 12.8 % (11.5-14.5); Red Blood Cell (RBC) Count 4.58 mill/uL (4.70-6.10); White Blood Cell (WBC) Count 12.6 thou/uL (4.8-10.8)
[2019-08-08 05:33] LABS: ALT (SGPT) 16 U/L (8-55); AST (SGOT) 13 U/L (5-34); Albumin 3.5 g/dL (3.5-5.0); Alkaline Phosphatase 55 U/L (40-110); Anion Gap 10 mmol/L (10-20); BUN (Urea Nitrogen) 14 mg/dL (8.4-25.7); Bilirubin, Total 0.6 mg/dL (0.2-1.2); Calc. Creatinine Clearance 172 mL/min (70-130); Carbon Dioxide 24 mmol/L (22-29); Chloride 106 mmol/L (98-107); Estimated GFR-MDRD Greater than 90; Globulin 2.4 g/dL (2.4-3.5); Glucose 109 mg/dL (70-105); Potassium 4.2 mmol/L (3.5-5.1); Protein, Total 5.9 g/dL (6.0-8.3); Sodium 136 mmol/L (136-145)
[2019-08-08] MEDS: traMADol HCl 50 MG TAB PO PRN (07:15)
[2019-08-08] MEDS: Sodium Chloride 0.9% 1,000 ML IV SCH ×2 (08:28→09:28)
[2019-08-08] MEDS: Multivitamin W/ Minerals 1 TAB PO SCH (08:29)
[2019-08-08] MEDS: Aspirin 81 mg Enteric Coated Tablet PO SCH ×2 (08:29→19:48)
[2019-08-08] MEDS: Senokot S 8.6-50 MG TAB PO SCH ×2 (08:29→19:48)
[2019-08-08] MEDS: Ferrous Gluconate 324 MG TAB PO SCH ×2 (08:30→19:48)
[2019-08-08] MEDS: Loratadine 10 MG TAB PO SCH (08:42)
--- NOTE | 2019-08-08 09:31 | OP ---
DATE OF PROCEDURE: 08/07/2019 PREOPERATIVE DIAGNOSIS: Left knee osteoarthritis. POSTOPERATIVE DIAGNOSIS: Left knee osteoarthritis. PROCEDURE PERFORMED: Left total knee arthroplasty. COMBINE OPERATOR: Milton Rogers. ANESTHESIA: Dr. Mccray. The patient received an LMA, adductor canal catheter with single-shot sciatic. ESTIMATED BLOOD LOSS: 100 mL. TOURNIQUET TIME: 76 minutes at 300 mmHg. ANTIBIOTICS: Ancef 2 g, vancomycin 1.5. The patient received TXA 1.5 IMPLANTS: [place] Triathlon size 4 primary base plate, A32 patella, 5 CS 9 mm poly insert, and a size 5 CR femur. COMPLICATIONS: None. HISTORY OF PRESENT ILLNESS: Mr. Garsia is a 54-year-old male with left knee pain. He has had for over 2 years. He had bilateral knee pain, left has been worse than the right, the right has recently increased. The patient has previous history of conservative management, injections, weight reduction, anti-inflammatories, failed conservative measures, desired left knee arthroplasty. I discussed with the patient risks and benefits of left total knee arthroplasty including pain, scar, bleeding, infection, damage to vital structures, decreased range of motion and strength, continued pain despite surgical intervention, blood clots, loss of life or limb. The patient understood the risks and benefits of left total knee arthroplasty, elected to proceed. DESCRIPTION OF PROCEDURE: Time-out was performed designating the patient's left lower extremity as the operative site based on site, consents, and marking. After time-out, the patient's left lower extremity was prepped and draped in sterile fashion. Tourniquet was brought up and left for a total of 76 minutes. Anterior midline approach, medial patellar arthrotomy was performed, excised the fat pad, did medial soft tissue release. Went to pin our extramedullary navigation guide, navigation computer was not syncing with the navigation guide, therefore we elected for external jig mechanism. We drilled a hole in the center of the femur for the extramedullary jigs, placed our intramedullary guide, pinned our tray in position and cut roughly 6 mm off the distal femur, mediolaterally 6 to 7 mm. We removed this, pinned our tray into position. We had overall good position, given hyperextension, we did not want to take too much of the notch. We pinned the guide, first trialed 6 and finally went to the 5, which had overall good piano_sign anteriorly with anterior, posterior, chamfer cuts, placed our PCL retractor in position, inverted and brought our tibia into position. We used the external jig and pinned it into position, giving it about four fingers of slope which was built in with 3 degrees posterior slope, cut at 0 and might have taken 2 more. [place] like we got about 3 and 6 mm respectively. We removed the bone mediolaterally. We released our PCL. We then did medial and lateral removal with lamina spreaders, removed the menisci posterior, reached the PCL, removed any posterior osteophytes. We pinned our tray into position, anterior 1 /3 of tibial tubercle down the spine, off medial aspect, no overhang medial or lateral, placed our poly, placed our femur. We had overall good hyperextension, about 5 degrees hyperextension, varus valgus stability at 0 to 20 degrees. The patient had no significant drawer, had good stability with his PCL. We everted the patella , cut it down from about 24 mm down to 12 and liked the overall wafer that was cut, positioned, we drilled an A32, it tracked well. We then drilled our lugs, cut our keel for our tibia, removed all implants, washed, cemented in our tibia, removed excess and placed our poly, cemented our femur, removed excess cement, cemented the patella, removed the excess cement. We washed, closed the arthrotomy with #2 Vicryl, #2 Stratafix, 0 Stratafix, 2-0 Stratafix, and glue. The patient will be weightbearing as tolerated. The patient will be admitted to the [facility] postop protocol, will be followed in-house. Job ID: [id number] [facility]
[2019-08-08 13:28] VITALS: BMI 34.2
--- NOTE | 2019-08-08 14:37 | PDOC.HOSPP ---
- Subjective Encounter Date: 08/08/19 Encounter Time: 09:20 Subjective: pt sitting in the chair, no Bm yet but got stool softener. doing ok. no acute c /o; wbcs trending down. - Objective Vital Signs & Weight: Vital Signs (12 hours) Temp Pulse Resp BP Pulse Ox 08/08/19 11:40 97.8 F 76 18 123/81 98 08/08/19 07:39 97.8 F 84 20 114/75 97 08/08/19 03:23 98.7 F 78 16 110/76 96 Weight Admit Weight 232 lb Weight 232 lb I&O: 08/07/19 08/08/19 08/09/19 06:59 06:59 06:59 Intake Total 1630 600 Balance 1630 600 Result Diagrams: 08/08/19 04:52 08/08/19 04:52 Hospitalist ROS - Medication Medications: Active Medications Generic Name Dose Route Start Last Admin Trade Name Freq PRN Reason Stop Dose Admin Hydrocodone Bitart/Acetaminophen 1 tab 08/07/19 12:16 08/07/19 20:22 [place] 10/325 PO 1 tab Q4H PRN Administration Moderate Pain (4-6) Hydrocodone Bitart/Acetaminophen 2 tab 08/07/19 12:16 08/08/19 12:49 [place] 10/325 PO 2 tab Q4H PRN Administration Severe Pain (7-10) Aspirin 81 mg 08/07/19 21:00 08/08/19 08:29 Ecotrin PO 81 mg BID JAMES Administration Ferrous Gluconate 324 mg 08/08/19 09:00 08/08/19 08:30 Fergon PO 324 mg BID JAMES Administration Ropivacaine 250 ml/ Device 250 mls @ 10 mls/hr 08/07/19 09:30 08/08/19 12:43 NERVE BLCK 08/10/19 09:29 250 mls INF JAMES Administration Sodium Chloride 1,000 mls @ 100 mls/hr 08/07/19 12:16 08/08/19 09:28 Normal Saline 0.9% IV Not Given .Q10H JAMES Iron/Minerals/Multivitamins 1 tab 08/08/19 09:00 08/08/19 08:29 Theragran M PO 1 tab DAILY JAMES Administration Ketorolac Tromethamine 30 mg 08/07/19 18:00 08/08/19 08:38 Toradol IVP 08/09/19 18:01 30 mg 0200,1000,1800 JAMES Administration Loratadine 10 mg 08/08/19 09:00 08/08/19 08:42 Claritin PO 10 mg DAILY JAMES Administration Senna/Docusate Sodium 2 tab 08/08/19 09:00 08/08/19 08:29 Senokot S PO 2 tab BID JAMES Administration Tramadol HCl 100 mg 08/07/19 12:16 08/08/19 07:15 Ultram PO 100 mg Q6H PRN Administration Moderate Pain (4-6) - Exam General Appearance: NAD, awake alert Eye: PERRL ENT: normocephalic atraumatic Neck: supple Heart: RRR Respiratory: CTAB, normal chest expansion Gastrointestinal: soft, non-tender, normal bowel sounds, no palpable masses Extremities - other findings: L. knee/leg dressing Neurological: cranial nerve grossly intact, no focal deficits Psychiatric: normal affect, normal behavior, A&O x 3 Hosp A/P - Plan s.p L- TKR ongoing PT Leukocytosis -expected -post-sux -trending down stable to cw PT either rehab or home PT. Ok from medical point of view for discharge.
--- NOTE | 2019-08-08 18:09 | PRG ---
DATE OF SERVICE: 08/08/2019 SUBJECTIVE: Varinder is a 54-year-old male, postop day 1 from left total knee arthroplasty. He has no complaints. He is comfortable. OBJECTIVE: VITAL SIGNS: Temperature 99, pulse 99, respiratory rate 18 and nonlabored, and blood pressure is 120/73. GENERAL: He is alert and oriented to person, place, time, and situation. Responsive and appropriate with examiner. He has no complaints. EXTREMITIES: Incision is clean and closed without any erythema. No strikethrough. He is neurovascularly intact in the left lower extremity. LABORATORY DATA: Hemoglobin and hematocrit of 13.3 and 41.5. IMPRESSION: A 54-year-old male, postop day 1, left total knee arthroplasty, doing well. PLAN: Continue current care. Consider discharge to home tomorrow. Job ID: [id number]
[2019-08-09] MEDS: Ketorolac Tromethamine 30 MG/ML VIAL IVP SCH ×3 (02:28→11:16)
[2019-08-09] MEDS: HYDROcodone/Acetaminophen 10/325 mg Tablet PO PRN ×3 (02:29→13:16)
[2019-08-09] MEDS: Sodium Chloride 0.9% 1,000 ML IV SCH ×2 (03:41→11:16)
[2019-08-09 06:08] LABS: Hemoglobin 12.7 g/dL (14.0-18.0); Mean Corpuscular HGB CONC 34.7 g/dL (32.0-36.0); Mean Corpuscular Hemoglobin 31.5 pg (27.0-31.0); Mean Corpuscular Volume 90.7 fL (78.0-98.0); Platelet Count 204 thou/uL (130-400); RBC Distribution Width 12.9 % (11.5-14.5); Red Blood Cell (RBC) Count 4.04 mill/uL (4.70-6.10); White Blood Cell (WBC) Count 8.9 thou/uL (4.8-10.8)
[2019-08-09] MEDS: Senokot S 8.6-50 MG TAB PO SCH (08:52)
[2019-08-09] MEDS: Multivitamin W/ Minerals 1 TAB PO SCH (08:53)
[2019-08-09] MEDS: Loratadine 10 MG TAB PO SCH (08:53)
[2019-08-09] MEDS: Aspirin 81 mg Enteric Coated Tablet PO SCH (08:53)
[2019-08-09] MEDS: Ferrous Gluconate 324 MG TAB PO SCH (08:53)
[2019-08-09] MEDS ORDERED: Ibuprofen 200 MG TAB PO PRN (09:09)
[2019-08-09] MEDS ORDERED: Ibuprofen 200 MG TAB PO SCH (09:15)
[2019-08-09 12:13] VITALS: BP 115/75; TEMP 98.6
--- NOTE | 2019-08-09 15:33 | PDOC.HOSPP ---
- Subjective Encounter Date: 08/09/19 Encounter Time: 10:55 Subjective: pt doing well, no fever, wbcs normalized. - Objective Vital Signs & Weight: Vital Signs (12 hours) Temp Pulse Resp BP Pulse Ox 08/09/19 11:00 98.6 F 106 H 16 115/75 97 08/09/19 07:51 98.5 F 100 18 121/81 99 08/09/19 04:00 98.5 F 97 18 138/78 95 Weight Admit Weight 232 lb Weight 232 lb I&O: 08/08/19 08/09/19 08/10/19 06:59 06:59 06:59 Intake Total 1630 1880 1160 Balance 1630 1880 1160 Result Diagrams: 08/09/19 05:44 08/08/19 04:52 - Exam General Appearance: NAD, awake alert Eye: PERRL ENT: normocephalic atraumatic Neck: supple Heart: RRR Respiratory: CTAB, normal chest expansion Gastrointestinal: soft, normal bowel sounds Hosp A/P - Plan s.p L- TKR ongoing PT Leukocytosis -expected-----------> resolved on 4th -post-sux -trending down BP good. stable to cw PT either rehab or home PT. Ok from medical point of view for discharge.
== END 2019-08-09 13:15 | disposition home or self-care (01) | DRG 470 ==
LOC: SURG A 08-07 06:58 → EDSTATUS 08-07 08:30 → SJJU 08-07 13:53
PROVIDERS: ADMIT Orthopaedic Surgery; ATTEND Orthopaedic Surgery
PROC: 0SRD0J9 Replacement of Left Knee Joint with Synthetic Substitute, Cemented, Open Approach (ICD-10-PCS; principal; 2019-08-07)
DX: M17.12 Unilateral primary osteoarthritis, left knee (principal); E66.9 Obesity, unspecified; Z11.59 Encounter for screening for other viral diseases; Z90.49 Acquired absence of other specified parts of digestive tract; Z79.899 Other long term (current) drug therapy; Z93.3 Colostomy status; Z68.34 Body mass index [BMI] 34.0-34.9, adult
CPT/HCPCS: 36415; 80048; 80053; 85025; 85027; 85610; 86850; 86900; 86901; 87081; C1713; C1776; J0670; J0690; J1100; J1170; J1885; J2001; J2250; J2405; J2550; J2704; J2795; J3010; J3370; J3490; J7050; S0020

== ENCOUNTER 2020-01-03 07:33 | Outpatient (CLI) | payer OTHER ==
[2020-01-03 14:53] LABS: #Basophils 0.1 10x3/uL (0.0-0.2); #Eosinphils 0.2 10x3/uL (0.0-0.5); #Monocytes 0.7 10x3/uL (0.0-1.1); #Neutrophils 3.6 10x3/uL (1.5-8.4); %Basophils 0.8 % (0.0-2.0); %Eosinophils 2.6 % (0.0-6.0); %Lymphocytes 30.4 % (18.0-47.0); %Monocytes 10.5 % (0.0-10.0); %Neutrophils 55.2 % (40.0-75.0); Hemoglobin 16.3 g/dL (14.0-18.0); Mean Corpuscular HGB CONC 32.7 G/DL (32.0-36.0); Mean Corpuscular Hemoglobin 28.6 PG (27.0-33.0); Mean Corpuscular Volume 87.7 fl (80.0-100.0); Mean Platelet Volume 10.2 fl (7.4-10.4); Platelet Count 278 10x3/uL (130-400); RBC Distribution Width 14.8 % (11.5-14.5); Red Blood Cell (RBC) Count 5.69 10x6/uL (4.40-5.80); White Blood Cell (WBC) Count 6.6 10x3/uL (4.5-11.0)
[2020-01-03 15:22] LABS: Anion Gap 20 mmol/L (10-20); BUN (Urea Nitrogen) 14 mg/dL (8.4-25.7); Calc. Creatinine Clearance 0 mL/min (70-130); Calcium 9.2 mg/dL (7.8-10.44); Carbon Dioxide 17 mmol/L (22-29); Chloride 107 mmol/L (98-107); Estimated GFR-MDRD Greater than 90; Glucose 93 mg/dL (70-105); Potassium 4.5 mmol/L (3.5-5.1); Sodium 139 mmol/L (136-145)
[2020-01-03 15:26] LABS: INR-International Normal Ratio 0.9; Prothrombin Time 9.8 sec (9.5-12.1)
[2020-01-04 11:54] LABS: SARS-CoV-2 MS2 Positive; SARS-CoV-2 N Gene Negative; SARS-CoV-2 S Gene Negative; SARS-CoV-2 by NAA Not Detected (NotDetected); SARS-CoV-2 orf1ab Negative
== END 2020-01-03 07:34 | disposition home or self-care (01) ==
LOC: LABBT 07:33
PROVIDERS: ATTEND Orthopaedic Surgery
DX: Z01.818 Encounter for other preprocedural examination (principal); Z20.828 Contact with and (suspected) exposure to other viral communicable diseases; M17.11 Unilateral primary osteoarthritis, right knee
CPT/HCPCS: 80048; 85025; 85610; 87081; 87635; 93005; 93010; U0003

== ENCOUNTER 2020-01-03 13:00 | Inpatient (IN) | payer OTHER ==
[2020-01-07 15:11] VITALS: BMI 35.4
[2020-01-08] MEDS ORDERED: Vancomycin 1.5 GRAM/300 ML BAG ONE (06:05)
[2020-01-08] MEDS ORDERED: Tranexamic Acid 1,000 MG/10 ML VIAL ONE (06:05)
[2020-01-08] MEDS ORDERED: Sodium Chloride 0.9% 100 ML ONE (06:05)
[2020-01-08] MEDS ORDERED: Fentanyl 100 MCG/2 ML VIAL ONE ×5 (06:32→09:51)
[2020-01-08] MEDS ORDERED: Lidocaine 1% (PF) 30 ML VIAL ONE (06:32)
[2020-01-08] MEDS ORDERED: Midazolam HCl 2 mg/2 ml Vial ONE (06:32)
[2020-01-08] MEDS ORDERED: Fentanyl 100 MCG/2 ML VIAL SLOW IVP PRN ×3 (07:57→10:19)
[2020-01-08] MEDS ORDERED: Ondansetron PF 4 MG/2 ML Vial IVP PRN ×2 (08:00→10:19)
[2020-01-08] MEDS ORDERED: HYDROcodone/Acetaminophen 10/325 mg Tablet PO PRN ×3 (08:00→10:19)
[2020-01-08] MEDS ORDERED: Zolpidem Tartrate 5 MG TAB PO PRN ×2 (08:00→10:19)
[2020-01-08] MEDS ORDERED: traMADol HCl 50 MG TAB PO PRN ×3 (08:00→10:19)
[2020-01-08] MEDS ORDERED: Ropivacaine HCl/PF 250 ML in Premix Bag 1 BAG NERVE BLCK SCH (08:00)
[2020-01-08] MEDS ORDERED: Promethazine HCl 25 MG/ML VIAL IM PRN ×3 (08:00→10:19)
--- NOTE | 2020-01-08 08:06 | HP ---
HISTORY OF PRESENT ILLNESS: Mr. Garsia is a 54-year-old male who presents with right knee pain. He has failed conservative measures. The patient is taking anti-inflammatories. Working on range of motion. Recently underwent a left total knee arthroplasty on 08/07/2019. The patient is otherwise comfortably resting in bed. He would like to proceed with a right total knee arthroplasty. PAST MEDICAL HISTORY: Diverticulitis. PAST SURGICAL HISTORY: Laparoscopic cholecystectomy 2018, colectomy 2018, ostomy reversal, left total knee in 08/2019. CURRENT MEDICATIONS: Include: 1. Tylenol. 2. Calcium carbonate. 3. Ibuprofen. 4. Loratadine. ALLERGIES: NO KNOWN DRUG ALLERGIES. SOCIAL HISTORY: Occasional alcohol. The patient works night time babysitter, not . The patient has a history of drug use in the past. REVIEW OF SYSTEMS: Noncontributory. PHYSICAL EXAMINATION: GENERAL: Male, in no acute distress, resting comfortably in bed. EXTREMITIES: The patient's right lower extremity, the patient has 0-120, medial joint line pain. Neurovascularly intact. Good pulses. Slightly antalgic gait. Mild varus. DIAGNOSTIC STUDIES: Right knee films show very subtle varus changes, patellofemoral degenerative changes. Osteoarthritis, right knee. ASSESSMENT AND PLAN: The patient will be taken back to the OR for a right total knee arthroplasty. Discussed the risks and benefits of surgery, pain, scar, bleeding, infection, damage to vital structures, decreased range of motion, continued knee pain despite surgical intervention, failure of procedure, infection, blood clots, damage to vital organs, loss of life or limb. The patient understood the risks and benefits and elected to proceed. Job ID: [id number] [facility]
[2020-01-08] MEDS ORDERED: Promethazine HCl 25 MG/ML VIAL SLOW IVP PRN (09:07)
[2020-01-08] MEDS ORDERED: Ondansetron HCl/PF 4 MG/2 ML Vial IVP PRN (09:07)
[2020-01-08] MEDS ORDERED: PACU-Morphine 4MG/ML VIAL SLOW IVP PRN (09:07)
[2020-01-08] MEDS ORDERED: HYDROmorphone 2 MG/ML VIAL SLOW IVP PRN (09:07)
[2020-01-08] MEDS ORDERED: Ketorolac Tromethamine 30 MG/ML VIAL IVP PRN (10:19)
[2020-01-08] MEDS ORDERED: Acetaminophen 325 MG TAB PO PRN (10:19)
[2020-01-08] MEDS ORDERED: Aspirin 81 mg Enteric Coated Tablet PO SCH (11:45)
[2020-01-08] MEDS ORDERED: Lidocaine 1% PF 5 ML VIAL ONE (12:49)
[2020-01-08] MEDS ORDERED: Ondansetron PF 4 MG/2 ML Vial ONE (12:49)
[2020-01-08] MEDS ORDERED: PROPOFOL 200 MG/20 ML VIAL ONE (12:49)
[2020-01-08] MEDS ORDERED: Bupivacaine HCl 0.5%/Epinephrine 1:200,000/PF 30 ml Vial ONE (12:49)
[2020-01-08] MEDS ORDERED: Dexamethasone 20 MG/5 ML VIAL ONE (12:49)
[2020-01-08] MEDS ORDERED: Ropivacaine 0.2% HCl/PF (40 MG/20 ML VIAL) ONE (12:49)
[2020-01-08] MEDS ORDERED: Ketorolac Tromethamine 30 MG/ML VIAL ONE (12:49)
[2020-01-08] MEDS: Ketorolac Tromethamine 30 MG/ML VIAL IVP SCH ×3 (13:19→23:18)
[2020-01-08] MEDS: Dextrose 5 %-0.45 % NaCl 1,000 ML IV SCH ×2 (13:32→22:27)
--- NOTE | 2020-01-08 13:47 | RAD ---
RIGHT KNEE 2 VIEWS: Date: 01/08/2020 HISTORY: Postop right TKA. FINDINGS/IMPRESSION: There are recent postop changes of total knee arthroplasty in good position and alignment. Soft tissu e air is present. POS: OFF
[2020-01-08] MEDS: CEFAZOLIN 2 GM in Premix Bag 1 BAG IVPB SCH ×2 (16:20→22:20)
[2020-01-08] MEDS: HYDROcodone/Acetaminophen 10/325 mg Tablet PO PRN ×2 (18:56→23:17)
[2020-01-08] MEDS: Aspirin 81 mg Enteric Coated Tablet PO SCH (19:52)
[2020-01-08] MEDS ORDERED: Vancomycin 1.5 GRAM/300 ML BAG 1.5 GM in Premix Bag 1 BAG IVPB SCH (20:00)
[2020-01-08] MEDS: diphenhydrAMINE 25 MG CAP PO PRN (22:21)
[2020-01-09] MEDS: HYDROcodone/Acetaminophen 10/325 mg Tablet PO PRN ×3 (05:16→20:09)
[2020-01-09] MEDS: Ketorolac Tromethamine 30 MG/ML VIAL IVP SCH ×4 (05:17→23:16)
[2020-01-09 05:51] LABS: Hemoglobin 13.6 g/dL (14.0-18.0); Mean Corpuscular HGB CONC 33.5 g/dL (32.0-36.0); Mean Corpuscular Hemoglobin 30.1 pg (27.0-31.0); Platelet Count 221 thou/uL (130-400); RBC Distribution Width 13.4 % (11.5-14.5); Red Blood Cell (RBC) Count 4.53 mill/uL (4.70-6.10); White Blood Cell (WBC) Count 9.5 thou/uL (4.8-10.8)
[2020-01-09] MEDS: Dextrose 5 %-0.45 % NaCl 1,000 ML IV SCH ×2 (06:31→16:41)
[2020-01-09] MEDS: Ferrous Gluconate 324 MG TAB PO SCH ×2 (08:39→17:34)
[2020-01-09] MEDS: Multivitamin W/ Minerals 1 TAB PO SCH (08:39)
[2020-01-09] MEDS: Loratadine 10 MG TAB PO SCH (08:39)
[2020-01-09] MEDS: Senokot S 8.6-50 MG TAB PO SCH ×2 (08:39→20:08)
[2020-01-09] MEDS: Aspirin 81 mg Enteric Coated Tablet PO SCH ×2 (08:39→20:08)
--- NOTE | 2020-01-09 09:45 | OP ---
DATE OF PROCEDURE: 01/08/2020 PREOPERATIVE DIAGNOSIS: Right knee osteoarthritis. POSTOPERATIVE DIAGNOSIS: Right knee osteoarthritis. PROCEDURE PERFORMED: Right total knee arthroplasty. FUSE COILER: Gabriella Norman PA-C. ANESTHESIA: Dr. Weldon. The patient received general LMA with a single-shot sciatic and adductor canal catheter. TOURNIQUET TIME: 79 minutes minutes at 300 mmHg. ANTIBIOTICS: Ancef 2 g, vancomycin 1.5 g. The patient received TXA 1 g. IMPLANTS: [place] Triathlon size 5 femur, size 4 tibial base plate, 9 CS poly, and A32 patella. COMPLICATION: None. HISTORY OF PRESENT ILLNESS: Mr. Garsia is a 54-year-old male, who presents with right knee pain. The patient was complaining of right knee pain from his arthritis, failed conservative measures with injection, anti-inflammatories, and rest. The patient decided to have his right knee replaced. I discussed with him the risks and benefits of the surgery to include pain, scar, bleeding, infection, damage to vital structures, decreased range of motion or strength, need for further surgery, continued pain despite surgical intervention, loss of life or limb. The patient understood the risks and benefits of the procedure and elected to proceed. DESCRIPTION OF PROCEDURE: Time-out was performed designating the patient's right lower extremity as the operative site based on site, consents, and marking. After time-out, the patient's right lower extremity was prepped and draped in sterile fashion. Tourniquet was brought up and left for a total of 79 minutes. Anterior approach, made a medial patellar arthrotomy, we excised the fat pad, did medial soft tissue release, everted the patella, exposed distal femur and mapped out the femur, cut at 10 and 6, 0 degrees of varus and valgus, 5 degrees of slope, we then pinned our 3-degree external guide into position, retracted our collaterals, measured for a 5, placed our 5 block, cut anterior, posterior, and chamfer cuts, protecting the collateral ligaments throughout this, removed all the bone and osteophytes as well as the cut pieces, removed our block, placed our pickle fork, released our PCL, took down the tibial eminences to better map out the tibia. Placed our mapping block, pinned it into the proximal tibia, mapped, did not like and re-mapped, coming down to about 8, 1, 1/2, with 0 degree of varus and 4 degrees of slope, I cut off the block, cutting 6 and -1, which still got a posterior cut, although left a little bit posteromedially, removed the block, removed the section of bone . We placed our lamina meteorological engineer, and laterally, placed the osteophytes, decompressed the PCL, we then took out the medial meniscus, removed all the osteophytes. Being happy with this and overall position, we then placed our lamina meteorological engineer in position medially, took our osteophytes, took our lateral meniscus decompressed posteriorly removed off all the osteophytes posteriorly, removed all bone. We then moved back, pinned our tray into position, placed a 9 poly and our femur into position, placed to flexion- extension, the patient needed a little bit of posterior slope and removal of bone_ posteromedially, so we took off and re-cut the posterior tibia with a little bit of slope to help improve alignment and rasped it down, hoping to improve the alignment, tracking. We everted the patella, cut it down to about 11 mm and placed A32 patella and it tracked well. We drilled our lug holes for our lugs, cut our keel for our tibia, washed the implant, cemented our tibia, removed excess cement, cemented our femur, removed excess cement, cemented our patellar, removed excess cement, washed, closed the arthrotomy with #2 Stratafix, 0 Stratafix, and 3-0 Stratafix, and glue. The patient will be admitted to [place] per postop protocol, will be admitted, receive 24 hours of perioperative antibiotics, and begin our protocol. My car rental sales assistant helped with the approach, exposure, retraction, cuts, implantation of implants, closure, and dressing throughout the case. Job ID: [id number] MTDD
[2020-01-09] MEDS: diphenhydrAMINE 25 MG CAP PO PRN (21:06)
[2020-01-10] MEDS: Dextrose 5 %-0.45 % NaCl 1,000 ML IV SCH ×2 (00:55→13:43)
[2020-01-10] MEDS: HYDROcodone/Acetaminophen 10/325 mg Tablet PO PRN ×2 (03:55→10:39)
[2020-01-10 05:15] LABS: Hemoglobin 13.6 g/dL (14.0-18.0); Mean Corpuscular HGB CONC 34.3 g/dL (32.0-36.0); Mean Corpuscular Hemoglobin 30.4 pg (27.0-31.0); Mean Corpuscular Volume 88.7 fL (78.0-98.0); Mean Platelet Volume 7.6 fL (7.4-10.4); Platelet Count 202 thou/uL (130-400); RBC Distribution Width 13.4 % (11.5-14.5); Red Blood Cell (RBC) Count 4.48 mill/uL (4.70-6.10); White Blood Cell (WBC) Count 7.6 thou/uL (4.8-10.8)
[2020-01-10] MEDS: Ketorolac Tromethamine 30 MG/ML VIAL IVP SCH (05:20)
[2020-01-10] MEDS: Loratadine 10 MG TAB PO SCH (08:27)
[2020-01-10] MEDS: Ferrous Gluconate 324 MG TAB PO SCH (08:27)
[2020-01-10] MEDS: Multivitamin W/ Minerals 1 TAB PO SCH (08:27)
[2020-01-10] MEDS: Aspirin 81 mg Enteric Coated Tablet PO SCH (08:27)
[2020-01-10] MEDS: Senokot S 8.6-50 MG TAB PO SCH (08:27)
[2020-01-10 11:41] VITALS: BP 136/85; TEMP 97.8
== END 2020-01-10 15:38 | disposition home or self-care (01) | DRG 470 ==
LOC: SJJU 01-08 05:44 → SURG B 01-08 11:04
PROVIDERS: ADMIT Orthopaedic Surgery; ATTEND Orthopaedic Surgery
PROC: 0SRC0J9 Replacement of Right Knee Joint with Synthetic Substitute, Cemented, Open Approach (ICD-10-PCS; principal; 2020-01-08)
DX: M17.11 Unilateral primary osteoarthritis, right knee (principal); Z90.49 Acquired absence of other specified parts of digestive tract
CPT/HCPCS: 36415; 85027; C1713; C1776; J0690; J1100; J1885; J2001; J2250; J2405; J2704; J2795; J3010; J3370; J3490; Q0163

== ENCOUNTER 2020-02-01 10:34 | Observation (INO) | payer OTHER ==
[2020-02-01] MEDS ORDERED: HYDROcodone/Acetaminophen 10/325 mg Tablet ONE (11:23)
[2020-02-01 11:35] LABS: #Eosinphils 0.2 thou/uL (0.0-0.7); #Lymphocytes 1.5 thou/uL (1.20-3.40); #Monocytes 0.6 thou/uL (0.11-0.59); %Basophils 0.4 % (0.0-1.0); %Eosinophils 3.8 % (0.0-10.0); %Lymphocytes 28.1 % (21.0-51.0); %Monocytes 10.6 % (0.0-10.0); %Neutrophils 57.2 % (42.0-75.0); Hemoglobin 15.1 g/dL (14.0-18.0); Mean Corpuscular HGB CONC 33.2 g/dL (32.0-36.0); Mean Corpuscular Hemoglobin 29.6 pg (27.0-31.0); Mean Corpuscular Volume 89.1 fL (78.0-98.0); Mean Platelet Volume 7.3 fL (7.4-10.4); Platelet Count 316 thou/uL (130-400); RBC Distribution Width 13.1 % (11.5-14.5); White Blood Cell (WBC) Count 5.2 thou/uL (4.8-10.8)
[2020-02-01 11:50] LABS: ALT (SGPT) 24 U/L (8-55); AST (SGOT) 18 U/L (5-34); Albumin 3.9 g/dL (3.5-5.0); Alkaline Phosphatase 93 U/L (40-110); Anion Gap 11 mmol/L (10-20); BUN (Urea Nitrogen) 11 mg/dL (8.4-25.7); Bilirubin, Total 0.4 mg/dL (0.2-1.2); CK (CPK) 41 U/L (30-200); Calc. Creatinine Clearance 0 mL/min (70-130); Calcium 8.5 mg/dL (7.8-10.44); Carbon Dioxide 25 mmol/L (22-29); Chloride 107 mmol/L (98-107); Globulin 3.2 g/dL (2.4-3.5); Glucose 95 mg/dL (70-105); Protein, Total 7.1 g/dL (6.0-8.3); Sodium 139 mmol/L (136-145)
[2020-02-01] MEDS ORDERED: traMADol HCl 50 MG TAB PO PRN (12:23)
[2020-02-01] MEDS ORDERED: HYDROcodone/Acetaminophen 10/325 mg Tablet PO PRN (12:23)
[2020-02-01] MEDS ORDERED: Ondansetron PF 4 MG/2 ML Vial SLOW IVP PRN (12:23)
[2020-02-01] MEDS ORDERED: Communication Order-Pharmacy FS SCH (12:30)
[2020-02-01] MEDS ORDERED: TETANUS AND DIPHTHERIA TOX/PF 0.5 ML DISP.SYRIN IM SCH (12:30)
--- NOTE | 2020-02-01 13:17 | HP ---
ON BEHALF OF: Joshua Hoyt MD HISTORY OF PRESENT ILLNESS: This is a 54-year-old male who recently underwent right total knee arthroplasty on 01/08/2020. In the last week, he started to notice some drainage from a site in his healing surgical wound. He presented to our clinic earlier this week and was prescribed p.o. antibiotics, clindamycin. He denied fever at that time and also denies fever today. He states the drainage worsened in the last 12 to 24 hours and he presented to our facility for further evaluation. He reports that he has been taking the antibiotic as prescribed. He has not completed it. No increased difficulty in motion. He has been doing well in his postoperative period. Of note, he did have his left total knee done earlier this year in 08/2019. PAST MEDICAL HISTORY: Significant for: 1. Diverticulosis. 2. Gallstones. PAST SURGICAL HISTORY: 1. Left total knee in 08/2019. 2. Right total knee on 01/08/2020. 3. Colostomy with reversal. 4. Cholecystectomy. 5. Appendectomy. SOCIAL HISTORY: The patient lives with girlfriend. He is a nonsmoker and social drinker. He is currently getting around with one crutch secondary to recent surgery. ALLERGIES: NO KNOWN DRUG ALLERGIES. REVIEW OF SYSTEMS: Ten-point review of systems conducted and otherwise negative except for stated above. PHYSICAL EXAMINATION: VITAL SIGNS: Current vital signs including blood pressure of 113/73, pulse of 78, respiratory rate 18, temperature 97.8, and O2 saturation 98% on room air. GENERAL: The patient is awake and alert. He is nontoxic appearing. He is pleasant and cooperative with exam today. HEENT: Head is normocephalic and atraumatic. NECK: Supple. Trachea midline. Breathing nonlabored. EXTREMITIES: Evaluation of the right lower extremity shows a recent surgical wound. About midway through the wound, there is what appears to be a small granuloma, likely from a stitch abscess. No active drainage at this time. No bleeding. No surrounding erythema. There is a trace knee effusion. The patient is able to flex to 90 degrees with full extension. Distal neurovascular status intact. Evaluation of the contralateral leg shows a well-healed anterior midline scar from total knee arthroplasty. He does have active motion in this extremity. Upper extremities also show active range of motion without any injuries or deformities or signs of infection. LABORATORY DATA: Reviewed today including a CBC shows a white blood cell count normal at 0.2. ESR normal at 15 and CRP normal at less than 0.50. ASSESSMENT: Superficial suture abscess from recent total knee arthroplasty. PLAN: At this time, the patient has been on oral antibiotics. He feels that his drainage has increased; however, it may be that this suture abscess is opened up and has been draining. This does not look like a total knee infection at this time. We will go ahead and admit him for some IV antibiotics just to be safe. We will watch him overnight and re-evaluate him tomorrow. He may have a full diet. No surgical intervention is anticipated at this time. Job ID: [id number]
[2020-02-01] MEDS ORDERED: Pharmacy to Dose ALL ABX IVPB PRN (13:25)
[2020-02-01 15:49] VITALS: BMI 36.9
--- NOTE | 2020-02-01 19:43 | CON ---
DATE OF CONSULTATION: 02/01/2020 HISTORY OF PRESENT ILLNESS: Mr. Garsia is a 54-year-old male, well known to my service. He had a right total knee performed by me on 01/08/2020. He presented to the office this week with a small area of erythema, which looks like maybe a small suture abscess versus an area of induration just at the incision line. The patient has had some pointing there. He was started on Cleocin, which has completely resolved his erythema, but he still has a small area of 1 mm poke hole with a small mL of drainage. No constant or consistent drainage with about a centimeter or a centimeter and a half area that might be a small subcutaneous abscess. The patient's pain is better. He still has some pain in the back of his knee, but otherwise resting comfortably in bed. Please see Gabriella Norman's H and P for full details. PHYSICAL EXAMINATION: GENERAL: No acute distress, resting in bed. EXTREMITIES: Right lower extremity, small 1 mm poke hole with a centimeter and a half of potential fluid collection at the superior pole of the patient's patella. There is trace effusion. There is no erythema. The knee is warm. He is able to flex and extend the knees. Neurovascularly intact. LABORATORY DATA: His CBC is 5.4. His CRP is less than 0.5, and his ESR is 15 and normal. ASSESSMENT: Superficial suture abscess, the patient with total knee. PLAN: The patient will be switched to IV antibiotics. Plan will just be to do an I and D in the morning to allow that area to be opened up. He will also enable me to explore the knee as needed if I need to do a spacer exchange. The wound will be left open. I will come back likely place an incisional wound VAC. If everything is good, we will discharge him home with oral antibiotics with followup cultures. Job ID: [id number]
[2020-02-01 19:57] LABS: SARS-CoV-2 MS2 Positive; SARS-CoV-2 N Gene Positive; SARS-CoV-2 S Gene Positive; SARS-CoV-2 by NAA DETECTED (NotDetected); SARS-CoV-2 orf1ab Positive
[2020-02-01] MEDS: Aspirin 81 mg Enteric Coated Tablet PO SCH (20:33)
[2020-02-01] MEDS ORDERED: Vancomycin HCl 1.5 GM in Sodium Chloride 0.9% 250 ML 300 ML IVPB SCH (21:00)
[2020-02-02] MEDS: Vancomycin HCl 1.25 GM in Sodium Chloride 0.9% 250 ML 250 ML IVPB SCH ×3 (00:37→17:30)
[2020-02-02 06:25] LABS: #Eosinphils 0.3 thou/uL (0.0-0.7); #Lymphocytes 1.7 thou/uL (1.20-3.40); #Monocytes 0.5 thou/uL (0.11-0.59); #Neutrophils 3.2 thou/uL (1.40-6.50); %Basophils 0.8 % (0.0-1.0); %Eosinophils 5.3 % (0.0-10.0); %Lymphocytes 29.4 % (21.0-51.0); %Monocytes 9.4 % (0.0-10.0); %Neutrophils 55.2 % (42.0-75.0); Hemoglobin 14.2 g/dL (14.0-18.0); Mean Corpuscular HGB CONC 32.6 g/dL (32.0-36.0); Mean Corpuscular Hemoglobin 28.7 pg (27.0-31.0); Mean Platelet Volume 7.4 fL (7.4-10.4); Platelet Count 295 thou/uL (130-400); Red Blood Cell (RBC) Count 4.97 mill/uL (4.70-6.10); White Blood Cell (WBC) Count 5.7 thou/uL (4.8-10.8)
[2020-02-02 06:51] LABS: ALT (SGPT) 25 U/L (8-55); AST (SGOT) 18 U/L (5-34); Albumin 3.6 g/dL (3.5-5.0); Alkaline Phosphatase 81 U/L (40-110); Anion Gap 13 mmol/L (10-20); BUN (Urea Nitrogen) 8 mg/dL (8.4-25.7); Bilirubin, Total 0.4 mg/dL (0.2-1.2); Calc. Creatinine Clearance 208 mL/min (70-130); Calcium 8.3 mg/dL (7.8-10.44); Carbon Dioxide 22 mmol/L (22-29); Chloride 106 mmol/L (98-107); Globulin 2.8 g/dL (2.4-3.5); Glucose 102 mg/dL (70-105); Potassium 3.8 mmol/L (3.5-5.1); Protein, Total 6.4 g/dL (6.0-8.3); Sodium 137 mmol/L (136-145)
--- NOTE | 2020-02-02 08:38 | PRG ---
DATE OF SERVICE: 02/02/2020 SUBJECTIVE: Mr. Garsia is a 54-year-old male with a right knee suture abscess incision and erythema. The patient is resting up in bed, afebrile. No acute complaints. He is without pain except for some bending of his knee. OBJECTIVE: GENERAL: Alert and oriented male, in no acute distress. EXTREMITIES: Right lower extremity shows no significant erythema. No gross purulence. A small area of induration along the incision line about a centimeter and a half to 2 cm area noted. Neurovascularly intact. No acute injury. LAB RESULTS: Positive for COVID. ASSESSMENT AND PLAN: The patient has had a positive test result for COVID. In the last 3 months, he has been completely asymptomatic. His retest shows he is still positive. The patient will be made n.p.o. Call the OR for I and D, possible spacer exchange and possible polyethylene swap. I will expose the wound and likely leave it just superficial skin for allow for granulation by secondary intent. There are no signs of cavitary defects. We will wash out the wound and allow to heal from bottom up, potentially likely placing an incisional wound VAC. Job ID: [id number] [facility]
[2020-02-02] MEDS: Aspirin 81 mg Enteric Coated Tablet PO SCH ×2 (08:49→20:14)
[2020-02-02] MEDS: HYDROcodone/Acetaminophen 10/325 mg Tablet PO PRN (09:25)
[2020-02-02] MEDS ORDERED: HYDROmorphone 0.5 MG/0.5 ML SYRINGE ONE (10:19)
[2020-02-02] MEDS ORDERED: Fentanyl 100 MCG/2 ML VIAL ONE ×3 (10:19→11:51)
[2020-02-02] MEDS ORDERED: Promethazine HCl 25 MG/ML VIAL SLOW IVP PRN (12:01)
[2020-02-02] MEDS ORDERED: Promethazine HCl 25 MG/ML VIAL IM PRN (12:01)
[2020-02-02] MEDS ORDERED: HYDROmorphone 2 MG/ML VIAL SLOW IVP PRN (12:01)
[2020-02-02] MEDS ORDERED: Ondansetron HCl/PF 4 MG/2 ML Vial IVP PRN (12:01)
[2020-02-02] MEDS ORDERED: PACU-Morphine 4MG/ML VIAL SLOW IVP PRN (12:01)
[2020-02-02] MEDS ORDERED: HYDROcodone/Acetaminophen 10/325 mg Tablet ONE (12:29)
[2020-02-02] MEDS ORDERED: Ondansetron PF 4 MG/2 ML Vial ONE (12:44)
[2020-02-02] MEDS ORDERED: Lidocaine 1% PF 5 ML VIAL ONE (12:44)
[2020-02-02] MEDS ORDERED: PROPOFOL 200 MG/20 ML VIAL ONE (12:44)
[2020-02-02] MEDS ORDERED: Ketorolac Tromethamine 30 MG/ML VIAL ONE (12:44)
[2020-02-02] MEDS ORDERED: Dexamethasone 20 MG/5 ML VIAL ONE (12:44)
[2020-02-02 17:03] LABS: Vancomycin, Trough 12.1 ug/mL
[2020-02-02] MEDS: Vancomycin 1.5 GRAM/300 ML BAG 1.5 GM in Premix Bag 1 BAG IVPB SCH (18:14)
[2020-02-03] MEDS: Vancomycin 1.5 GRAM/300 ML BAG 1.5 GM in Premix Bag 1 BAG IVPB SCH ×2 (01:48→10:01)
[2020-02-03] MEDS: HYDROcodone/Acetaminophen 10/325 mg Tablet PO PRN (01:55)
[2020-02-03] MEDS: Aspirin 81 mg Enteric Coated Tablet PO SCH (08:32)
[2020-02-03 11:39] VITALS: BP 138/82; TEMP 97.7
--- NOTE | 2020-02-03 15:18 | OP ---
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 PROCEDURE PERFORMED: Incision and drainage, right knee. ANESTHESIA: Brauer_. The patient received the LMA. ESTIMATED BLOOD LOSS: Less than 10 mL. TOURNIQUET TIME: None. ANTIBIOTICS: Scheduled Vanc. CULTURES: x1. COMPLICATIONS: None. HISTORY OF PRESENT ILLNESS: Mr. Garsia is a 54-year-old male, who came to see me in clinic this week on Tuesday that is 3-week postop appointment. He had a small pointing area just about 3 cm in his medial aspect of his knee. It seemed like it was either just cellulitic area versus a small suture abscess. I started the patient on Cleocin, which completely resolved the erythema, but he still had a small spot where there was a superficial stitch abscess with a small 1 mm poke hole that was not constantly draining, it was just a little area. Given this when I saw him, he still has some point tenderness there, I felt like we needed to unroof or open that small area. Discussed I would evaluate the knee and potentially do a spacer exchange if it tracked and went further down in the skin. He understood the risks and benefits of the procedure, pain, scar, bleeding, infection, need for revision or replacement, damage to vital structures, loss of life or limb. He understood the risks and benefits and elected to proceed. DESCRIPTION OF PROCEDURE: Time-out was performed designating the patient's right lower extremity as the operative site based on site, consents, and marking. After time-out, the patient's right lower extremity was prepped and draped in sterile fashion. I made about a 3 cm area. I used scissors to bluntly dissect down. I came down on the patient's 2-0 Stratafix. I did not follow anything further subcu. There were no holes tracking. No gross purulence noted, just some fat induration. I excised the skin margin on both sides. I washed 3 L of water through. I packed the wound. The patient will have an incisional wound VAC placed tomorrow. We will keep on the IV antibiotics. Staph aureus was grown from his superficial wound with susceptibilities to follow. We will follow up the other cultures. We will likely send him home on p.o. clindamycin and p.o. Bactrim. I feel this is likely just superficial skin abscess that will resolve itself and heal on its own. The patient's lab values were completely normal and has had no effusion. Therefore, I think it is just the isolated spot. I will discharge the patient tomorrow if everything is in order. Job ID: [id number] MTDD
--- NOTE | 2020-02-04 11:22 | DIS ---
DATE OF ADMISSION: 02/01/2020 DATE OF DISCHARGE: 02/03/2020 This is Gabriella Norman PA-C dictating a report for Joshua Hoyt MD. REASON FOR ADMISSION: Right total knee arthroplasty with superficial suture abscess, wound infection. PREOPERATIVE DIAGNOSIS: Right total knee arthroplasty with superficial wound abscess. 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 PROCEDURES PERFORMED: Incision and drainage, right knee. BRIEF HOSPITAL COURSE: This is a 54-year-old male, who was seen in the clinic earlier in the week at his 3-week postop appointment. He was noted to have a small pointing area just about 3 cm in his medial aspect of his knee. It seemed like it was either a cellulitic area versus a small suture abscess. The patient was started on Cleocin, which completely resolved the erythema, but he still had small spot, where there was superficial stitch abscess with a small 1 mm poke hole that was not constantly draining, but it seemed to worsen. He then presented to the emergency department for worsening drainage. He was admitted for observation overnight and IV antibiotics to see if this drainage worsened. He then underwent incision and drainage to that right knee wound. It was not felt that this entered the joint capsule. The patient did well with surgery. Postoperatively, he was discharged to home. He did go home with p.o. antibiotics. DISCHARGE DISPOSITION: Home. DISCHARGE CONDITION: Stable. DISCHARGE INSTRUCTIONS: The patient will follow up with Dr. Hoyt as scheduled. He did have an incisional VAC placed to his right knee. He will keep this intact until his followup. DISCHARGE MEDICATIONS: See MAY. Job ID: [id number]
[2020-02-06 13:16] LABS: Fungus Stain Final report (.)
--- NOTE | 2020-02-09 09:36 | EKG ---
Test Reason : Blood Pressure : / mmHG Vent. Rate : 074 BPM Atrial Rate : 074 BPM P-R Int : 164 ms QRS Dur : 088 ms QT Int : 362 ms P-R-T Axes : -03 -03 016 degrees QTc Int : 401 ms Normal sinus rhythm Minimal voltage criteria for LVH, may be normal variant Borderline ECG Confirmed by HERBERT BARRERA DO ([id number]), industrial editor FERMÍN STOLL ([id number] on 02/09/2020 9:35:52 AM Referred By: Confirmed By:HERBERT BARRERA DO
== END 2020-02-03 12:32 | disposition home or self-care (01) ==
LOC: ERS 10:34 → SURG A 12:23
PROVIDERS: ADMIT Orthopaedic Surgery; ATTEND Orthopaedic Surgery
PROC: 0J9N0ZZ Drainage of Right Lower Leg Subcutaneous Tissue and Fascia, Open Approach (ICD-10-PCS; principal; 2020-02-02)
DX: T81.41XA Infection following a procedure, superficial incisional surgical site, initial encounter (principal); U07.1 COVID-19; Z79.899 Other long term (current) drug therapy; Z96.653 Presence of artificial knee joint, bilateral
CPT/HCPCS: 36415; 80053; 80202; 82550; 85025; 85652; 86140; 86900; 86901; 87040; 87070; 87077; 87102; 87186; 87205; 87206; 87635; 93005; 96365; 96366; 96374; G0378; J1100; J1170; J1885; J2405; J2704; J3010; J3370; J7030; J7050; U0003

== ENCOUNTER 2025-01-16 08:23 | Emergency (ER) | payer OTHER ==
[2025-01-16] MEDS ORDERED: Ondansetron PF 4 MG/2 ML Vial ONE (08:58)
[2025-01-16] MEDS ORDERED: Ketorolac Tromethamine 30 MG (1 mL) VIAL ONE (08:58)
[2025-01-16 09:05] LABS: #Basophils 0.03 10x3/uL (0.0-0.2); #Eosinophils 0.09 10x3/uL (0.0-0.7); #Monocytes 0.70 10x3/uL (0.11-0.59); #Neutrophils 5.64 10x3/uL (1.40-6.50); %Basophils 0.4 % (0.0-1.0); %Eosinophils 1.2 % (0.0-10.0); %Lymphocytes 16.5 % (21.0-51.0); %Monocytes 9.0 % (0.0-10.0); %Neutrophils 72.6 % (42.0-75.0); Hematocrit 50.2 % (42.0-52.0); Hemoglobin 16.6 g/dL (14.0-18.0); Mean Corpuscular Hemoglobin 28.8 pg (27.0-31.0); Mean Corpuscular Volume 87.0 fL (78.0-98.0); Platelet Count 249 10x3/uL (130-400); Red Blood Cell (RBC) Count 5.77 mill/uL (4.70-6.10); White Blood Cell (WBC) Count 7.76 10x3/uL (4.8-10.8)
[2025-01-16 09:20] LABS: Bacteria/HPF None Seen HPF (None Seen); CAUTI Indications for Culture Dysuria,urgency,freq; Glucose, Urine (Dipstick) Normal (Negative); Leukocyte Negative Leu/uL (Negative); Protein, Urine (Dipstick) Negative (Neg-Trace); Specific Gravity, Urine 1.022 (1.002-1.036); WBC/HPF 0-3 HPF (0-3)
[2025-01-16 09:22] LABS: Urine Culture Reflex No No
[2025-01-16 09:23] LABS: ALT (SGPT) 20 U/L (Less than 45); AST (SGOT) 21 U/L (11-34); Albumin 4.0 g/dL (3.1-4.5); Alkaline Phosphatase 68 U/L (40-110); Anion Gap 13 mmol/L (10-20); BUN (Urea Nitrogen) 19 mg/dL (8.4-25.7); Bilirubin, Total 0.6 mg/dL (0.3-1.2); Calc. Creatinine Clearance 0 mL/min (70-130); Calcium 9.0 mg/dL (7.8-10.44); Carbon Dioxide 18 mmol/L (22-29); Chloride 111 mmol/L (98-107); Globulin 3.3 g/dL (2.4-3.5); Glucose 111 mg/dL (70-105); Lipase 24 U/L (8-78); Potassium 4.0 mmol/L (3.5-5.1); Sodium 138 mmol/L (136-145)
== END 2025-01-16 09:52 | disposition home or self-care (01) ==
LOC: ERS 08:23
DX: N20.2 Calculus of kidney with calculus of ureter (principal)
CPT/HCPCS: 80053; 81001; 83690; 85025; 96374; 96375; J1885; J2405